=== PATIENT | male | born 1950 | race Caucasian/White ===

== ENCOUNTER 2016-05-28 14:26 | Emergency (ER) | payer MEDICARE ==
[2016-05-28 14:26] VITALS: BMI 30.7
[2016-05-28 14:35] VITALS: TEMP 98.3
--- NOTE | 2016-05-28 18:41 | DIRPT ---
CLINICAL DATA: Cough and shortness of breath. EXAM: CHEST 2 VIEW COMPARISON: 04/16/2016 FINDINGS: Cardiac pacemaker with unchanged positioning of the leads. The cardiac silhouette is enlarged. Mediastinal contours appear intact. There is no evidence of focal airspace consolidation, pleural effusion or pneumothorax. There are persistent bilateral lower lobe streaky opacities, likely representing scarring. Mild hyperinflation of the lungs is noted. Osseous structures are without acute abnormality. Soft tissues are grossly normal. IMPRESSION: Chronic bibasilar scarring without evidence of focal airspace consolidation. Stable cardiomegaly. Electronically Signed By: Vince Martinez M.D. On: 05/28/2016 18:38
[2016-05-28] MEDS ORDERED: ALBUTEROL 0.083% 3 ML NEB NEB ONE ×2 (21:06→22:41)
[2016-05-28] MEDS ORDERED: METHYLPREDNISOLONE 125 MG/2 ML VIAL IV ONE (21:06)
[2016-05-28] MEDS ORDERED: LORAZEPAM 2 MG/ML VIAL IV ONE (21:07)
--- NOTE | 2016-05-28 21:10 | EDPRACDOC ---
- General Information Chief Complaint: Flu-Like Symptoms Stated Complaint: TROUBLE BREATHING Time Seen by Provider: 05/28/16 21:02 Information Source: Patient Home Medications: Home Medications Aspirin [Johanthon Aspirin] 325 mg PO DAILY 03/19/13 Fluvastatin Sodium [Lescol] 40 mg PO DAILY 03/19/13 Furosemide [Lasix] 40 mg PO BID 03/19/13 Insulin Glargine,Hum.rec.anlog [Lantus] 60 unit SQ DAILY 03/19/13 Lisinopril [Prinivil] 20 mg PO DAILY 03/19/13 Allopurinol [Zyloprim] 300 mg PO DAILY PRN 04/30/15 Budesonide/Formoterol Fumarate [Symbicort 80-4.5 Mcg Inhaler] 2 puff INH BID PRN 04/30/15 Carvedilol [Coreg] 3.125 mg PO DAILY 08/16/15 Glipizide Xl [Glucotrol Xl] 10 mg PO QAM 08/16/15 Amiodarone HCl [Pacerone] 100 mg PO BID 11/06/15 Albuterol Sulfate [Ventolin Hfa] 1 - 2 puff INH Q4H PRN #1 each 04/16/16 Colchicine [Colcrys] 0.6 mg PO DIR PRN 04/16/16 Trazodone HCl [Desyrel] 100 mg PO QHS #60 tablet 04/16/16 Budesonide [Pulmicort] 0.5 mg NEB DAILY #30 ampul.neb 05/07/16 Albuterol Sulfate MDI [Proventil HFA] 2 puff INH Q4 PRN #1 inhaler 05/28/16 Levofloxacin [Levaquin] 750 mg PO DAILY #10 tab 05/28/16 Lorazepam [Ativan] 1 mg PO BID #60 tab 05/28/16 Prednisone [Sterapred 10 mg/6 day pack] 21 tab PO DIR #1 pack 05/28/16 Allergies/Adverse Reactions: Allergies Allergy/AdvReac Type Severity Reaction Status Date / Time amitriptyline HCl Allergy Nausea/Vomi Verified 05/28/16 16:45 [From Elavil] ting indomethacin Allergy Nausea/Vomi Verified 05/28/16 16:45 ting - History of Present Illness Onset: 2 DAYS HPI: PATIENT HAS A HX OF COPD. COUGH - NONPRODUCTIVE. NO FEVER. NO N/V/D. PATIENT HAS HAD SOB AND FATIGUE FOR 2 DAYS. Current Symptoms: Reports: Cough, Nasal Symptoms Shortness of Breath: Moderate Cough: Reports: Non-productive Rhinorrhea: Reports: Clear Ear Symptoms: Reports: None Fever Severity/Quality: Reports: no fever Oral Intake: Normal Urinary Output: Normal Relevant History of: COPD Associated Signs & Symptoms:: Reports: Cough ED Past Medical History - History Reviewed Yes Nurses notes reviewed and agree except as marked Travel Outside of [place] in the Last 3 Months?: No - Patient Medical History Neurological History: Denies: Cerebrovascular Accident, Seizures Cardiac History: Reports: Atrial Fibrillation, Hypertension, Congestive Heart Failure, Heart Attack, Cardiac Catheterization (three months ago), Pacemaker Respiratory History: Reports: COPD, Emphysema GI/ History: Reports: Kidney Stones. Denies: Liver Failure, Gastroesophageal Reflux Musculoskeletal History: Reports: Gout. Denies: Rheumatoid Arthritis Psychological History: Reports: Anxiety. Denies: Depression, Substance Use Disorder Systemic History: Reports: Diabetes. 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 Denies: Stroke - Social Medical History Smoking Status: Former smoker Social History: Denies: Substance Use Disorder ETOH: None Substance Abuse: None Lives With: Family Lives In: Home EDM Review of Systems - Review of Systems ROS Negative Except as Marked: Yes All systems reviewed and were negative except as marked Constitutional: No Symptoms Reported. negative: Fever, Chills, Weakness, Fatigue, Loss of Appetite Eyes: No Symptoms Reported. negative: Redness, Blurred Vision, Double Vision, Discharge, Pain, Light Sensitive, Photophobia Ears: No Symptoms Reported. negative: Pain, Hearing Loss, Drainage, Ear Pulling Throat: No Symptoms Reported. negative: Pain, Swelling Nose: No Symptoms Reported. negative: Congestion, Bleeding, Discharge, Injection, Swelling, Deformity, Ecchymosis, Tender, Abrasion, Laceration Mouth: No Symptoms Reported. negative: Pain, Drooling Respiratory: Cough, Shortness of Breath. negative: Barky Cough, Brassy Cough, Hemoptysis, Wheezing Cardiovascular: No Symptoms Reported. negative: Chest Pain, Palpitations, Syncope, Edema, Orthopnea, PND, Skin Mottling, Cyanosis Gastrointestinal: No Symptoms Reported. negative: Pain, Constipation, Nausea, Vomiting, Diarrhea, Melena, Formula Intolerance Genitourinary: No Symptoms Reported. negative: Dysuria, Hematuria, Frequency, Discharge, Bleeding, Testicular Pain, Neurological: No Symptoms Reported. negative: Headache, Dizziness, Seizure, Numbness, Weakness, Speech Difficulty, Gait Difficulty Musculoskeletal: No Symptoms Reported. negative: Neck, Chestwall, Ribs, Back, Shoulder, Arm, Elbow, Forearm, Wrist, Hand, Pelvis, Hip, Femur, Knee, Leg, Ankle , Foot Integumentary: No Symptoms Reported. negative: Itching, Rash, Bruising, Wound Allergic/Immunologic: No Symptoms Reported. negative: Hives, Itching Hematologic: No Symptoms Reported. negative: Lymphadenopathy, Easy Bruising, Easy Bleeding Endocrine: No Symptoms Reported. negative: Weight Gain, Weight Loss Psychiatric: No Symptoms Reported. negative: Anxiety, Depression, Hallucinations, Insomnia, Suicidal - Physical Exam Constitutional: Alert (Awake), Distress (MILD) Oriented to: Time, Person, Place Last recorded Vital Signs: Last Vital Signs Temp 98.3 F 05/28/16 14:31 Pulse 82 05/28/16 21:06 Resp 24 05/28/16 21:06 BP 156/108 H 05/28/16 21:06 Pulse Ox 91 05/28/16 21:06 Oxygen Pulse Oxygen Saturation 91 O2 Device Room Air Oxygen Flow Rate 2 Fraction of Inspired Oxygen ( FIO2) - HEENT Head: Normal ( normocephalic) Eye Exam: Normal (PERRL, EOMI, Sclera white) Oropharynx: Normal (Pharynx:Moist without exudate,Gums-no swelling) Tympanic Membrane: Normal ENT EAC: Normal TMJ: Normal Nose: No Symptoms Reported (septum midline) Neck: Normal (FROM, trachea at midline) - Respiratory/Cardiovascular Respiratory: Diminished, Wheezes Cardiovascular: Tachycardia - GI Auscultation: Normal (NABS) Palpation: Normal (Soft,No rebound or guarding, non distended) Tenderness: Non tender Novak's Sign: Negative - Bladder: Normal - Musculoskeletal Back: Normal (Non-Tender) Extremities: Normal (Normal tone, Pulses 2+ No cyanosis or edema, FROM) - Integumentary Skin: Normal, Warm, Dry Lymphatics: Normal (no adenopathy) - Neurologic Memory Impaired: Normal Motor Function: Normal (Normal tone, Pulses 2+ No cyanosis or edema, FROM) Cranial Nerve: Normal (CN II-X11 intact sensation, strength 5/5) Cerebellar: Normal Mood Description: Normal Perception: Normal Decision Time to Discharge: 22:07 - Departure Yes I personally saw and evaluated the patient. Disposition: Home Condition: Good Final Diagnosis: URI (upper respiratory infection) Qualifiers: URI type: unspecified URI Qualified Code(s): J06.9 - Acute upper respiratory infection, unspecified COPD (chronic obstructive pulmonary disease) Qualifiers: COPD type: emphysema Emphysema type: unspecified Qualified Code(s): J43.9 - Emphysema, unspecified Instructions: Upper Respiratory Infection (ED) Education/Counseling Given To: Patient Education/Counseling Given Regarding: Diagnosis, Treatment, Prognosis, Follow Up Referrals: None,No Provider [Primary Care Provider] - One Week Elvis Benedict MD [Staff Physician] - One Week Prescriptions: Albuterol Sulfate MDI [Proventil HFA] 2 puff INH Q4 PRN #1 inhaler PRN Reason: Dyspnea Levofloxacin [Levaquin] 750 mg PO DAILY #10 tab Lorazepam [Ativan] 1 mg PO BID #60 tab Prednisone [Sterapred 10 mg/6 day pack] 21 tab PO DIR #1 pack
[2016-05-28] MEDS ORDERED: LEVOFLOXACIN 750 MG TAB PO ONE (21:11)
[2016-05-28] MEDS ORDERED: ALBUTEROL 6.7 GM MDI INH ONE (21:11)
[2016-05-28 21:25] LABS: ABG Draw Site Left Radial; ALLEN'S TEST PASS; BEb -2.1 (+/- 2); TCO2 21.5 MMOL/L (23-27)
[2016-05-28 23:12] VITALS: BP 174/102; PULSE 78
== END 2016-05-28 23:20 | disposition home or self-care (01) ==
LOC: ED 14:26
DX: J06.9 Acute upper respiratory infection, unspecified (principal); J44.9 Chronic obstructive pulmonary disease, unspecified
CPT/HCPCS: 36415; 36600; 71020; 82803; 87804; 94640; 96374; 96375; 99284; A9270; J2060; J2930; J3490

== ENCOUNTER 2016-06-02 14:01 | Inpatient (IN) | payer MEDICARE ==
[2016-06-02 14:27] LABS: AUTOMATED BASOPHIL 0.3 % (0-2); AUTOMATED EOSINOPHIL 0.2 % (0-5); AUTOMATED MONOCYTE 5.9 % (3-10); AUTOMATED NEUTROPHIL 85.6 % (45-76); MPV 7.9 fL (7.4-10.4)
[2016-06-02 14:40] LABS: PARTIAL THROMB. TIME 24.3 SEC (22-35); PT-INR 1.2
[2016-06-02 14:50] LABS: BLOOD UREA NITROGEN 47 MG/DL (9-20); CALCIUM 9.8 MG/DL (8.4-10.2); CALCULATED OSMOLALITY 286 MOs/Kg (270-290); CHLORIDE 93 mEq/L (98-107); SODIUM LEVEL 133 mEq/L (137-146); TOTAL PROTEIN 8.3 G/DL (6.3-8.2)
--- NOTE | 2016-06-02 15:13 | DIRPT ---
CLINICAL DATA: Shortness of breath. History of COPD P EXAM: CHEST 2 VIEW COMPARISON: chest x-rays dated 05/28/2016 and 04/16/2016. FINDINGS: Cardiomegaly is stable. Left chest wall pacemaker/ AICD is stable in position. There is stable mild hyperinflation compatible with the given history of COPD. There is stable mild scarring/ atelectasis at each lung base. Lungs otherwise clear. No convincing evidence of congestive heart failure. No evidence of pneumonia. Mild degenerative change against again seen throughout the slightly kyphotic thoracic spine. No acute osseous abnormality. IMPRESSION: 1. No evidence of acute cardiopulmonary abnormality. No evidence of CHF or pneumonia. 2. Cardiomegaly is stable. 3. Probable mild scarring/atelectasis at each lung base, unchanged. Electronically Signed By: Caleb Pérez M.D. On: 06/02/2016 15:11
[2016-06-02 15:21] LABS: GLUCOSE 430 MG/DL (70-99)
--- NOTE | 2016-06-02 16:03 | EDPRACDOC ---
- General Information Chief Complaint: Dyspnea/Resp distress Stated Complaint: DX WITH HEART FAILURE IF NOT BETTER GO TO ED Time Seen by Provider: 06/02/16 16:00 Mode Of Arrival: Car Home Medications: Home Medications Aspirin [Johnathon Aspirin] 325 mg PO DAILY 03/19/13 Fluvastatin Sodium [Lescol] 40 mg PO DAILY 03/19/13 Furosemide [Lasix] 40 mg PO BID 03/19/13 Insulin Glargine,Hum.rec.anlog [Lantus] 60 unit SQ DAILY 03/19/13 Lisinopril [Prinivil] 20 mg PO DAILY 03/19/13 Allopurinol [Zyloprim] 300 mg PO DAILY PRN 04/30/15 Budesonide/Formoterol Fumarate [Symbicort 80-4.5 Mcg Inhaler] 2 puff INH BID PRN 04/30/15 Carvedilol [Coreg] 3.125 mg PO DAILY 08/16/15 Glipizide Xl [Glucotrol Xl] 10 mg PO QAM 08/16/15 Amiodarone HCl [Pacerone] 100 mg PO BID 11/06/15 Albuterol Sulfate [Ventolin Hfa] 1 - 2 puff INH Q4H PRN #1 each 04/16/16 Colchicine [Colcrys] 0.6 mg PO DIR PRN 04/16/16 Trazodone HCl [Desyrel] 100 mg PO QHS #60 tablet 04/16/16 Budesonide [Pulmicort] 0.5 mg NEB DAILY #30 ampul.neb 05/07/16 Albuterol Sulfate MDI [Proventil HFA] 2 puff INH Q4 PRN #1 inhaler 05/28/16 Levofloxacin [Levaquin] 750 mg PO DAILY #10 tab 05/28/16 Lorazepam [Ativan] 1 mg PO BID #60 tab 05/28/16 Prednisone [Sterapred 10 mg/6 day pack] 21 tab PO DIR #1 pack 05/28/16 Allergies/Adverse Reactions: Allergies Allergy/AdvReac Type Severity Reaction Status Date / Time amitriptyline HCl Allergy Nausea/Vomi Verified 06/02/16 14:08 [From Elavil] ting indomethacin Allergy Nausea/Vomi Verified 06/02/16 14:08 ting - History of Present Illness HPI: PT SOB FOR A COUPLE OF WEEKS. SEEN IN ED MONDAY NIGHT. TOLD COPD. SAW [employer] MONDAY ([facility]), TOLD HEART FAILURE, INCREASED LASIX 80 MG BID. TOLD IF GETTING WORSE TO GO BACK TO ER. GOT SOME FLUID OFF BUT SOB GETTING WORSE, + ORTHOPNEA. DENIES CHEST CHEST PAIN. USES CPAP. NOT O2 DEPENDENT. ED Past Medical History - History Reviewed Yes Nurses notes reviewed and agree except as marked - Patient Medical History Neurological History: Denies: Cerebrovascular Accident, Seizures Cardiac History: Reports: Atrial Fibrillation, Hypertension, Congestive Heart Failure, Heart Attack, Cardiac Catheterization (three months ago), Pacemaker Respiratory History: Reports: COPD, Emphysema GI/ History: Reports: Kidney Stones. Denies: Liver Failure, Gastroesophageal Reflux Musculoskeletal History: Reports: Gout. Denies: Rheumatoid Arthritis Psychological History: Reports: Anxiety. Denies: Depression, Substance Use Disorder Systemic History: Reports: Diabetes. 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 Denies: Stroke - Social Medical History Smoking Status: Former smoker Social History: Denies: Substance Use Disorder EDM Review of Systems - Review of Systems ROS Negative Except as Marked: Yes All systems reviewed and were negative except as marked Constitutional: No Symptoms Reported. negative: Fever Respiratory: Cough (MILD), Shortness of Breath Cardiovascular: No Symptoms Reported. negative: Chest Pain Gastrointestinal: No Symptoms Reported Genitourinary: No Symptoms Reported - Physical Exam Constitutional: Alert (Awake), No apparent distress Oriented to: Time, Person, Place Last recorded Vital Signs: Last Vital Signs Temp 97.4 F L 06/02/16 14:08 Pulse 76 06/02/16 14:08 Resp 22 06/02/16 14:08 BP 149/83 06/02/16 14:08 Pulse Ox 99 06/02/16 14:08 Oxygen Pulse Oxygen Saturation 99 O2 Device Oxygen Flow Rate Fraction of Inspired Oxygen ( FIO2) - HEENT Head: Normal ( normocephalic) Eye Exam: Normal (PERRL, EOMI, Sclera white) Oropharynx: Normal (Pharynx:Moist without exudate,Gums-no swelling) Nose: No Symptoms Reported (septum midline) Neck: Normal (FROM, trachea at midline) - Respiratory/Cardiovascular Respiratory: Rhonchi (FAINT B/L) Cardiovascular: Normal (RRR without murmur, gallop or rub) - GI Auscultation: Normal (NABS) Palpation: Normal (Soft,No rebound or guarding, non distended) Tenderness: Non tender Novak's Sign: Negative - Musculoskeletal Back: Normal (Non-Tender) Extremities: Normal (Normal tone, Pulses 2+ No cyanosis or edema, FROM) - Integumentary Skin: Normal, Warm, Dry Lymphatics: Normal (no adenopathy) - Neurologic Memory Impaired: Normal Motor Function: Normal (Normal tone, Pulses 2+ No cyanosis or edema, FROM) Cranial Nerve: Normal (CN II-X11 intact sensation, strength 5/5) Cerebellar: Normal Mood Description: Normal Perception: Normal ED SOB MDM - Differential Diagnosis Differential Diagnosis: Heart Failure, Pnuemonia - Results Result Diagrams: 06/02/16 14:13 06/02/16 14:13 Results: WBC 12.5 xk/uL (3.8-10.8) H 06/02/16 14:13 RBC 6.12 xM/uL (4.70-6.10) H 06/02/16 14:13 Hgb 19.5 g/dL (14.0-18.0) H 06/02/16 14:13 Hct 56.8 % (42-52) H 06/02/16 14:13 MCV 93 fL (80-94) 06/02/16 14:13 MCH 31.9 pg (27-32) 06/02/16 14:13 MCHC 34.3 g/dl (33-36) 06/02/16 14:13 RDW 15.5 % (11.5-14.5) H 06/02/16 14:13 Plt Count 218 xk/uL (130-400) 06/02/16 14:13 MPV 7.9 fL (7.4-10.4) 06/02/16 14:13 Neut % (Auto) 85.6 % (45-76) H 06/02/16 14:13 Lymph % (Auto) 8.0 % (17-44) L 06/02/16 14:13 Haralson % (Auto) 5.9 % (3-10) 06/02/16 14:13 Eos % (Auto) 0.2 % (0-5) 06/02/16 14:13 Baso % (Auto) 0.3 % (0-2) 06/02/16 14:13 Absolute Neuts (auto) 10.63 xk/uL (1.7-8.2) H 06/02/16 14:13 Absolute Lymphs (auto) 1.00 xk/uL (0.65-4.75) 06/02/16 14:13 PT 12.7 SEC (9.2-11.2) H 06/02/16 14:13 INR 1.2 06/02/16 14:13 APTT 24.3 SEC (22-35) 06/02/16 14:13 Sodium 133 mEq/L (137-146) L 06/02/16 14:13 Potassium 4.7 mEq/L (3.5-5.1) 06/02/16 14:13 Chloride 93 mEq/L (98-107) L 06/02/16 14:13 Carbon Dioxide 24 mMOL/L (22-33) 06/02/16 14:13 Anion Gap 21 mEq/L (8-16) H 06/02/16 14:13 BUN 47 MG/DL (9-20) H 06/02/16 14:13 Creatinine 1.60 MG/DL (0.66-1.25) H 06/02/16 14:13 Estimated GFR (MDRD) 43 mL/min (>=60) L 06/02/16 14:13 Glucose 430 MG/DL (70-99) H* 06/02/16 14:13 Calculated Osmolality 286 MOs/Kg (270-290) 06/02/16 14:13 Calcium 9.8 MG/DL (8.4-10.2) 06/02/16 14:13 Total Bilirubin 2.6 MG/DL (0.2-1.3) H 06/02/16 14:13 AST 30 IU/L (17-59) 06/02/16 14:13 ALT 25 IU/L (21-72) 06/02/16 14:13 Alkaline Phosphatase 160 IU/L (50-160) 06/02/16 14:13 Troponin I < 0.01 ng/mL (<.04) 06/02/16 14:13 [id number] Pept 8820 pg/mL (0-900) H 06/02/16 14:13 Total Protein 8.3 G/DL (6.3-8.2) H 06/02/16 14:13 Albumin 4.4 G/DL (3.5-5.0) 06/02/16 14:13 Lab Results 06/02/16 06/02/16 06/02/16 14:13 14:13 14:13 WBC 12.5 H RBC 6.12 H Hgb 19.5 H Hct 56.8 H MCV 93 MCH 31.9 MCHC 34.3 RDW 15.5 H Plt Count 218 MPV 7.9 Neut % (Auto) 85.6 H Lymph % (Auto) 8.0 L Haralson % (Auto) 5.9 Eos % (Auto) 0.2 Baso % (Auto) 0.3 Absolute Neuts (auto) 10.63 H Absolute Lymphs (auto) 1.00 PT 12.7 H INR 1.2 APTT 24.3 Sodium 133 L Potassium 4.7 Chloride 93 L Carbon Dioxide 24 Anion Gap 21 H BUN 47 H Creatinine 1.60 H Estimated GFR (MDRD) 43 L Glucose 430 H* Calculated Osmolality 286 Calcium 9.8 Total Bilirubin 2.6 H AST 30 ALT 25 Alkaline Phosphatase 160 Troponin I < 0.01 [id number] Pept 8820 H Total Protein 8.3 H Albumin 4.4 - EKG EKG #1 EKG Time: 14:08 -: Yes EKG interpreted by me Rate: bpm: 76 Rhythm: Paced Comments: ABNORMAL EKG - Departure Yes I personally saw and evaluated the patient. Disposition: Admit IP To This Hospital Condition: Stable Final Diagnosis: CHF (congestive heart failure) Qualifiers: Congestive heart failure type: systolic Congestive heart failure chronicity: acute Qualified Code(s): I50.21 - Acute systolic (congestive) heart failure Referrals: None,No Provider [Primary Care Provider] - One Week Prescriptions: No Action Insulin Glargine,Hum.rec.anlog [Lantus] 60 unit SQ DAILY Lisinopril [Prinivil] 20 mg PO DAILY Furosemide [Lasix] 40 mg PO BID Fluvastatin Sodium [Lescol] 40 mg PO DAILY Aspirin [Johnathon Aspirin] 325 mg PO DAILY Allopurinol [Zyloprim] 300 mg PO DAILY PRN PRN Reason: GOUT FLARE Budesonide/Formoterol Fumarate [Symbicort 80-4.5 Mcg Inhaler] 2 puff INH BID PRN PRN Reason: Shortness Of Breath Glipizide Xl [Glucotrol Xl] 10 mg PO QAM Carvedilol [Coreg] 3.125 mg PO DAILY Amiodarone HCl [Pacerone] 100 mg PO BID Colchicine [Colcrys] 0.6 mg PO DIR PRN PRN Reason: GOUT FLARE UPS Albuterol Sulfate [Ventolin Hfa] 1 - 2 puff INH Q4H PRN #1 each PRN Reason: SHORTNESS OF BREATH Trazodone HCl [Desyrel] 100 mg PO QHS #60 tablet Budesonide [Pulmicort] 0.5 mg NEB DAILY #30 ampul.neb Albuterol Sulfate MDI [Proventil HFA] 2 puff INH Q4 PRN #1 inhaler PRN Reason: Dyspnea Levofloxacin [Levaquin] 750 mg PO DAILY #10 tab Prednisone [Sterapred 10 mg/6 day pack] 21 tab PO DIR #1 pack Lorazepam [Ativan] 1 mg PO BID #60 tab Decision to Admit Time: 16:46 Decision to admit date: 06/02/16 Decision to admit: from ED - Physician Consulted Hospitalist Time Called: 16:46 Provider Called: Christa Christian Time [employer] Eng[employer] Supervisor Returned Call: 16:46
[2016-06-02 16:22] LABS: ABG Draw Site Right Radial; ALLEN'S TEST PASS; BEb 1.7 (+/- 2); TCO2 25.4 MMOL/L (23-27)
[2016-06-02] MEDS ORDERED: NITROGLYCERINE 0.4 MG TAB SL PRN (17:21)
[2016-06-02] MEDS ORDERED: MORPHINE 2 MG/ML INJECTION IV PRN (17:21)
[2016-06-02] MEDS ORDERED: ALBUTEROL 6.7 GM MDI INH PRN ×2 (17:26)
[2016-06-02] MEDS ORDERED: Non-Formulary Medication ITEM (Budesonide/Formoterol Fumarate [Symbicort 80-4.5 Mcg Inha INH PRN (17:26)
[2016-06-02] MEDS ORDERED: BUDESONIDE 0.5 MG NEB NEB PRN (17:34)
[2016-06-02] MEDS ORDERED: ALBUTEROL 0.083% 3 ML NEB NEB PRN (17:35)
--- NOTE | 2016-06-02 17:39 | HISTPHYS ---
- Chief Complaint Pt was seen here recently and was being treated for COPD. Pt was seen at cardiology on Monday and told it was CHF and if he was no better in a few days to come to ER. Pt states he has increased lasix over last several days. - History of Present Illness PT SOB FOR A COUPLE OF WEEKS. SEEN IN ED MONDAY NIGHT. TOLD COPD. SAW ELECTRICIAN SUBSTATION MONDAY (ARIADNA), TOLD HEART FAILURE, INCREASED LASIX 80 MG BID. TOLD IF GETTING WORSE TO GO BACK TO ER. GOT SOME FLUID OFF BUT SOB GETTING WORSE, + ORTHOPNEA. DENIES CHEST CHEST PAIN. USES CPAP. NOT O2 DEPENDENT. - Medical History Cardiac History: Reports: Atrial Fibrillation, Hypertension, Congestive Heart Failure, Heart Attack, Cardiac Catheterization (three months ago), Pacemaker Respiratory History: Reports: COPD, Emphysema GI/ History: Reports: Kidney Stones. Denies: Liver Failure, Gastroesophageal Reflux Musculoskeletal History: Reports: Gout. Denies: Rheumatoid Arthritis Systemic History: Reports: Diabetes. Denies: Cancer, Anemia Neurological History: Denies: Cerebrovascular Accident, Seizures Psychological History: Reports: Anxiety. Denies: Depression, Substance Use Disorder - Surgical History Reports: Cardiac Catheterization (three months ago), Other (PACEMAKER, ABLATION) - Medictions/Allergies Allergies amitriptyline HCl [From Elavil] Allergy (Verified 06/02/16 14:08) Nausea/Vomiting indomethacin Allergy (Verified 06/02/16 14:08) Nausea/Vomiting Home Medications Aspirin [Johnathon Aspirin] 325 mg PO DAILY 03/19/13 Fluvastatin Sodium [Lescol] 40 mg PO DAILY 03/19/13 Furosemide [Lasix] 40 mg PO BID 03/19/13 Insulin Glargine,Hum.rec.anlog [Lantus] 60 unit SQ DAILY 03/19/13 Lisinopril [Prinivil] 20 mg PO DAILY 03/19/13 Allopurinol [Zyloprim] 300 mg PO DAILY PRN 04/30/15 Budesonide/Formoterol Fumarate [Symbicort 80-4.5 Mcg Inhaler] 2 puff INH BID PRN 04/30/15 Carvedilol [Coreg] 3.125 mg PO DAILY 08/16/15 Glipizide Xl [Glucotrol Xl] 10 mg PO QAM 08/16/15 Amiodarone HCl [Pacerone] 100 mg PO BID 11/06/15 Albuterol Sulfate [Ventolin Hfa] 1 - 2 puff INH Q4H PRN #1 each 04/16/16 Colchicine [Colcrys] 0.6 mg PO DIR PRN 04/16/16 Trazodone HCl [Desyrel] 100 mg PO QHS #60 tablet 04/16/16 Budesonide [Pulmicort] 0.5 mg NEB DAILY #30 ampul.neb 05/07/16 Albuterol Sulfate MDI [Proventil HFA] 2 puff INH Q4 PRN #1 inhaler 05/28/16 Levofloxacin [Levaquin] 750 mg PO DAILY #10 tab 05/28/16 Lorazepam [Ativan] 1 mg PO BID #60 tab 05/28/16 Prednisone [Sterapred 10 mg/6 day pack] 21 tab PO DIR #1 pack 05/28/16 - Family History Reports: Hypertension (dad), Diabetes (sister), Cancer (cannot remember), Cardiac Disorders. Denies: Stroke - Social History Smoking Status: Former smoker Social History: Denies: Substance Use Disorder - Review of Systems Constitutional: No Symptoms Reported (No Fever, chills, wt loss/gain, diaphoresis,fatigue/malaise.), Weight loss Eyes: No Symptoms Reported (No blurry vision, visual changes, eye pain, or eye redness.) Ears: No Symptoms Reported (No ear pain or discharge) Nose: No Symptoms Reported (No nasal discharge/congestion or bleeding) Mouth: No Symptoms Reported (No oropharyngeal lesions or erythema) Throat/Neck: No Symptoms Reported (No throat pain or swelling.No oropharyngeal lesions or erythema.) Respiratory: Cough, Shortness of Breath, Wheezing, Dyspnea Cardiovascular: Chest Pain, Edema, Orthopnea, Palpitations Gastrointestinal: No Symptoms Reported (No abdominal pain, nausea, vomiting, diarrhea, constipation, or bloody stool.) Genitourinary: No Symptoms Reported (No dysuria or hematuria.) Neurological: No Symptoms Reported (No headache, dizziness, seizures, or focal weakness.) Musculoskeletal:: No Symptoms Reported Integumentary: No Symptoms Reported (no rashes or lesions) Allergic/Immunologic: No Symptoms Reported (no rashes or lesions) Hematologic: No Symptoms Reported (No chronic anemia, bleeding, or easy bruising.), Other (Lymphatics- no lymph node swelling or pain.) Endocrine: No Symptoms Reported (No thyroid issues, polyuria, or polydipsia.) Psychiatric: No Symptoms Reported (Fully oriented, with normal and appropriate affect.) - Physical Exam Vital Signs: Initial Vitals Temperature 97.4 F L 06/02/16 14:08 Pulse Rate 76 06/02/16 14:08 Respiratory Rate 22 06/02/16 14:08 Blood Pressure 149/83 06/02/16 14:08 Pulse Oxygen Saturation 99 06/02/16 14:08 Constitutional: Alert (Awake, Fully oriented. Normal and appropriate affect.Well appearing. Well nourished.), Distress (Very short of breath) Oriented to: Time, Person, Place - HEENT Head: Normal (normocephalic, atraumatic.), Other (No cervical lymphadenopathy. No supraclavicular lymphadenopathy. Neck: No palpable mass, supple , trachea midline.) Eye: Normal (pupils equal, reactive to light, and round; EOMI, Sclera white) Oropharynx: Normal (Pharynx: Moist without exudate,Gums-no swelling, No oropharyngeal lesions or erythema, Mucous membranes are dry.) Tympanic Membrane: Normal (no discharge) ENT EAC: Normal (No oropharyngeal lesions or erythema. Mucous membranes are dry. ) TMJ: Normal Nose: No Symptoms Reported (septum midline, Nares patent, without discharge or bleeding.) Respiratory: Tachypnea, Wheezes Cardiovascular: Normal (RRR , Normal S1, S2. No murmurs, rubs, or gallops. PMI non-displaced. Carotids: no carotid bruits. No bradycardia or tachycardia. DP pulses 2+ bilaterally.) - GI Auscultation: Normal (normal active sounds) Palpation: Normal (Soft,non distended,nontender. No hepatosplenomegaly.) Tenderness: Non tender (No rebound or guarding) Novak's Sign: Negative - Musculoskeletal Back: Normal (Non-Tender) Extremities: Edema (2+) - Integumentary Skin: Normal (Clean, dry, and intact. No rashes. No lesions.) Lymphatics: Normal (No cervical lymphadenopathy. No supraclavicular lymphadenopathy.) - Neurologic Memory Impaired: Normal Motor Function: Normal (Motor 5/5 throughout.Normal tone, Pulses 2+ No cyanosis or edema, FROM) Cranial Nerve: Normal (CN II-XII intact sensation, strength 5/5) Cerebellar: Normal (Babinski: toes downgoing bilaterally. Intact Finger to nose. Sensory grossly intact to light touch. Intact rapid alternating movements bilaterally. No pronator drift.) Mood Description: Normal (Fully oriented. Normal and appropriate affect.) Perception: Normal (Normal and appropriate affect.) - Focused CV Perfusion Exam Vital Signs: Last Vital Signs Temp 97.4 F L 06/02/16 14:08 Pulse 76 06/02/16 17:33 Resp 22 06/02/16 17:33 BP 162/91 06/02/16 17:33 Pulse Ox 97 06/02/16 17:33 - Lab Results Laboratory Results - last 24 hr 06/02/16 06/02/16 06/02/16 14:13 14:13 14:13 WBC 12.5 H RBC 6.12 H Hgb 19.5 H Hct 56.8 H MCV 93 MCH 31.9 MCHC 34.3 RDW 15.5 H Plt Count 218 MPV 7.9 Neut % (Auto) 85.6 H Lymph % (Auto) 8.0 L [place] % (Auto) 5.9 Eos % (Auto) 0.2 Baso % (Auto) 0.3 Absolute Neuts (auto) 10.63 H Absolute Lymphs (auto) 1.00 PT 12.7 H INR 1.2 APTT 24.3 Puncture Site pH pCO2 pO2 HCO3 Total CO2 Base Excess FiO2 % Specimen Drawn By Sodium 133 L Potassium 4.7 Chloride 93 L Carbon Dioxide 24 Anion Gap 21 H BUN 47 H Creatinine 1.60 H Estimated GFR (MDRD) 43 L Glucose 430 H* Calculated Osmolality 286 Calcium 9.8 Total Bilirubin 2.6 H AST 30 ALT 25 Alkaline Phosphatase 160 Troponin I < 0.01 Rtw-C-Zimuilkhbjm Pept 8820 H Total Protein 8.3 H Albumin 4.4 06/02/16 16:18 WBC RBC Hgb Hct MCV MCH MCHC RDW Plt Count MPV Neut % (Auto) Lymph % (Auto) [place] % (Auto) Eos % (Auto) Baso % (Auto) Absolute Neuts (auto) Absolute Lymphs (auto) PT INR APTT Puncture Site Right radial pH 7.490 H pCO2 32.0 L pO2 104.0 H HCO3 24.4 Total CO2 25.4 Base Excess 1.7 FiO2 % 21% Specimen Drawn By Kas[place] Sodium Potassium Chloride Carbon Dioxide Anion Gap BUN Creatinine Estimated GFR (MDRD) Glucose Calculated Osmolality Calcium Total Bilirubin AST ALT Alkaline Phosphatase Troponin I Pdx-R-Bzoblxuzszx Pept Total Protein Albumin - Diagnostic Findings EXAM: CHEST 2 VIEW COMPARISON: chest x-rays dated 05/28/2016 and 04/16/2016. FINDINGS: Cardiomegaly is stable. Left chest wall pacemaker/ AICD is stable in position. There is stable mild hyperinflation compatible with the given history of COPD. There is stable mild scarring/ atelectasis at each lung base. Lungs otherwise clear. No convincing evidence of congestive heart failure. No evidence of pneumonia. Mild degenerative change against again seen throughout the slightly kyphotic thoracic spine. No acute osseous abnormality. IMPRESSION: 1. No evidence of acute cardiopulmonary abnormality. No evidence of CHF or pneumonia. 2. Cardiomegaly is stable. 3. Probable mild scarring/atelectasis at each lung base, unchanged. Electronically Signed By: Caleb Pérez M.D. On: 06/02/2016 15:11 - Assessment (1) Cardiac asthma I50.1 - LEFT VENTRICULAR FAILURE Acute Present on Admission: Yes Patient with wheezing likely not related to CHRONIC OBSTRUCTIVE PULMONARY DISEASE as he has been treated for CHRONIC OBSTRUCTIVE PULMONARY DISEASE in the past few days and has not had any response. Will try treatment with Lasix on the evidence based congestive heart failure protocol. (2) CHF (congestive heart failure) I50.9 - HEART FAILURE, UNSPECIFIED Chronic Present on Admission: Yes Qualifiers: Congestive heart failure type: systolic Congestive heart failure chronicity : acute Qualified Code(s): I50.21 - Acute systolic (congestive) heart failure No recent echocardiogram noted will check 1 in the a.m. continue evidence based protocol for congestive heart failure (3) CKD (chronic kidney disease) N18.9 - CHRONIC KIDNEY DISEASE, UNSPECIFIED Acute Present on Admission: Yes Qualifiers: Chronic kidney disease stage: stage 3 (moderate) Qualified Code(s): N18.3 - Chronic kidney disease, stage 3 (moderate) Likely related to his uncontrolled diabetes. Check urine microalbumin. Avoid nephrotoxins agents, will hold his Lasix and HARISH-inhibitor as he received contrast media for this CT scan. Monitor closely. (4) COPD (chronic obstructive pulmonary disease) J44.9 - CHRONIC OBSTRUCTIVE PULMONARY DISEASE, UNSPECIFIED Chronic Qualifiers: COPD type: emphysema Chronic bronchitis type: C Emphysema type: unspecified Qualified Code(s): J43.9 - Emphysema, unspecified Will treat with nebs and oxygen. Consider steroids if necessary. 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 Chronic Present on Admission: Yes (6) DMII (diabetes mellitus, type 2) E11.9 - TYPE 2 DIABETES MELLITUS WITHOUT COMPLICATIONS Chronic Present on Admission: Yes Qualifiers: Diabetes mellitus complication status: with skin complications Diabetes mellitus complication detail: with foot ulcer Diabetic retinopathy severity: D Proliferative retinopathy type: P Diabetes mellitus macular edema: D Diabetes mellitus chcf insulin use: with intermediate designer use Laterality: L Chronic kidney disease stage: C Qualified Code(s): E11.621 - Type 2 diabetes mellitus with foot ulcer; L97.509 - Non-pressure chronic ulcer of other part of unspecified foot with unspecified severity; 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 Need to get sugars under control. (7) Dyspnea R06.00 - DYSPNEA, UNSPECIFIED Acute Present on Admission: Yes Qualifiers: Dyspnea type: shortness of breath Qualified Code(s): R06.02 - Shortness of breath Likely related to exacerbation of heart failure plus-minus congestive heart failure peer - Plan Admitted into the hospital diurese monitor closely. Case Care Discussed with: Patient, Family Total Time: 65 minutes Critical Care: No Couseling Time (>50% in counseling/coordination): No
[2016-06-02] MEDS ORDERED: Pharmacy Order Set Alert SCH (18:00)
[2016-06-02] MEDS ORDERED: GLARGINE INSULIN (LANTUS) 100 UNITS/ML PEN SQ SCH (18:00)
[2016-06-02] MEDS ORDERED: [UNRECOGNIZED DRUG - OTHER] XX SCH (18:00)
[2016-06-02] MEDS ORDERED: FUROSEMIDE IV ONE ×2 (18:01)
[2016-06-02] MEDS ORDERED: GLUCAGON 1 MG VIAL SQ PRN (18:20)
[2016-06-02] MEDS ORDERED: DEXTROSE 25 GM/50 ML PFS IV PRN (18:20)
[2016-06-02] MEDS ORDERED: GLUCOSE (ORAL GEL) 15 GM TUBE PO PRN (18:20)
[2016-06-02] MEDS: Furosemide 100 MG/10 ML VIAL IV SCH (19:20)
[2016-06-02] MEDS: ATORVASTATIN 40 MG TAB PO SCH (19:21)
[2016-06-02] MEDS: POTASSIUM CHLORIDE 20 MEQ TAB PO SCH (19:21)
[2016-06-02] MEDS: NITROGLYCERINE 2 % OINTMENT PACK TOP SCH ×2 (19:21→23:37)
[2016-06-02] MEDS: ENOXAPARIN 40 MG/0.4 ML PFS SQ SCH (19:26)
--- NOTE | 2016-06-02 20:25 | PCM.CARDCO ---
Consultation Date: 06/02/16 Requesting Physician: Inez Perez [employer]: Elvis Everett Consult Reason: CHF - History of Present Illness Dr. Perez contact me approximately 5:30 p.m. and has been to see the patient in consultation for Cardiology continuity. He is known to my practice with a history of severe dilated cardiomyopathy with markedly reduced ejection fraction is biventricular pacemaker defibrillator chronic atrial fibrillation chronic obstructive lung disease and cirrhosis. He is not anticoagulated because of major hemorrhagic complications in the past. He was in my office Monday for routine visit after ED visit chest prior pre is felt to have had a flu-like illness. Seen in my office to short of breath at rest impaired at both cardiac heart failure and respiratory COPD deterioration his BNP level is markedly elevated increases diuretics and unfortunately failed improvement presents the hospital with decompensated heart failure. He does sodium restrict weighs daily and is weights are actually down. He is compliant with his diet and his medications. When seen Monday he was short of breath at rest any activities and was having orthopnea but not PND. He had no response to diuresis and in fact is worsened. Although his breathing was unimproved and in fact worsened today he has lost 4 lb in his peripheral edema is diminished. Recently despite decompensated heart failure marked edema his weight is down. Chief Complaint: Pt was seen here recently and was being treated for COPD. Pt states was seen at cardiology on Monday and told it was CHF and if he was no better in a few days to come to ER. Pt states he has increased lasix over last several days. - Past Medical and Surgical History Cardiac History: Reports: Atrial Fibrillation, Hypertension, Congestive Heart Failure (He also has obstructive sleep apnea on CPAP), Heart Attack, Cardiac Catheterization (three months ago), Pacemaker, Other Respiratory History: Reports: COPD, Emphysema, Other GI/ History: Reports: Kidney Stones. Denies: Liver Failure, Gastroesophageal Reflux Systemic History: Reports: Diabetes. Denies: Cancer, Anemia Musculoskeletal History: Reports: Gout. Denies: Rheumatoid Arthritis Psychological History: Reports: Anxiety. Denies: Depression, Substance Use Disorder Neurological History: Denies: Cerebrovascular Accident, Seizures Past Surgical History: Reports: Cardiac Catheterization (three months ago), Other (PACEMAKER, ABLATION) Allergies amitriptyline HCl [From Elavil] Allergy (Verified 06/02/16 14:08) Nausea/Vomiting indomethacin Allergy (Verified 06/02/16 14:08) Nausea/Vomiting Home Medications Aspirin [Johnathon Aspirin] 325 mg PO DAILY 03/19/13 Fluvastatin Sodium [Lescol] 40 mg PO DAILY 03/19/13 Furosemide [Lasix] 40 mg PO BID 03/19/13 Insulin Glargine,Hum.rec.anlog [Lantus] 60 unit SQ DAILY 03/19/13 Lisinopril [Prinivil] 20 mg PO DAILY 03/19/13 Allopurinol [Zyloprim] 300 mg PO DAILY PRN 04/30/15 Budesonide/Formoterol Fumarate [Symbicort 80-4.5 Mcg Inhaler] 2 puff INH BID PRN 04/30/15 Carvedilol [Coreg] 3.125 mg PO DAILY 08/16/15 Glipizide Xl [Glucotrol Xl] 10 mg PO QAM 08/16/15 Amiodarone HCl [Pacerone] 100 mg PO BID 11/06/15 Albuterol Sulfate [Ventolin Hfa] 1 - 2 puff INH Q4H PRN #1 each 04/16/16 Colchicine [Colcrys] 0.6 mg PO DIR PRN 04/16/16 Trazodone HCl [Desyrel] 100 mg PO QHS #60 tablet 04/16/16 Budesonide [Pulmicort] 0.5 mg NEB DAILY #30 ampul.neb 05/07/16 Albuterol Sulfate MDI [Proventil HFA] 2 puff INH Q4 PRN #1 inhaler 05/28/16 Levofloxacin [Levaquin] 750 mg PO DAILY #10 tab 05/28/16 Lorazepam [Ativan] 1 mg PO BID #60 tab 05/28/16 Prednisone [Sterapred 10 mg/6 day pack] 21 tab PO DIR #1 pack 05/28/16 - Social History Travel Outside of [place] in the Last 3 Months?: No Lives: Other (Independently) Smoking Status: Former smoker Social History: Denies: Substance Use Disorder - Family History Reports: Hypertension (dad), Diabetes (sister), Cancer (cannot remember), Cardiac Disorders. Denies: Stroke - Review of Systems Yes All systems reviewed and were negative except as marked Constitutional: No Symptoms Reported, Weakness. negative: Fever - Respiratory Cough, Wheezing, Sputum - Cardiovascular Edema, Orthopnea, PND - Musculoskeletal Musculoskeletal:: Joint Pain - Physical Exam Constitutional: No apparent distress, Alert (Awake), Other (He appears short of breath anxious chronically ill a COPD habitus) Oriented to: Time, Person, Place Exam: Last Vital Signs Temp 97.6 F 06/02/16 19:42 Pulse 80 06/02/16 19:42 Resp 22 06/02/16 19:42 BP 110/60 06/02/16 19:42 Pulse Ox 95 06/02/16 19:42 Intake & Output 06/02/16 06/02/16 06/02/16 07:59 15:59 23:59 Intake Total 240 Output Total 50 Balance 190 Patient's weight 213 lb - HEENT Head: Normal (Mild neck vein distention no bruit thyromegaly) Eye: Normal (PERRL, EOMI, Sclera white) Oropharynx: Normal (Pharynx:Moist without exudate,Gums-no swelling) Nose: No Symptoms Reported (septum midline) - Respiratory/Cardiovascular Respiratory: Diminished, Rales (Few scattered rales at the bases prolonged expiratory phase), Rhonchi (FAINT B/L) Cardiovascular: Irregular, Other (Distant soft S3) - GI Auscultation: Normal (Soft nondistended nontender) Palpation: Normal (Soft,No rebound or guarding, non distended) Tenderness: Non tender - Musculoskeletal Back: Normal (Non-Tender) Extremities: Normal (Normal tone, Pulses 2+ No cyanosis or edema, FROM), Edema ( One to 2+ pretibial presacral edema), Radial Pulse. negative: Calf Tenderness, Clubbing, Cyanosis, Femoral Pulse (Diminished), Pedal Pulse (Diminished) - Integumentary Skin: Normal, Warm, Dry Lymphatics: Normal (no adenopathy) - Neurologic Memory Impaired: Normal Cerebellar: Normal Mood Description: Normal Perception: Normal - Lab Results Laboratory Tests 06/02/16 06/02/16 06/02/16 14:13 14:13 14:13 WBC 12.5 H Hgb 19.5 H Hct 56.8 H Plt Count 218 pH pCO2 pO2 Potassium 4.7 Glucose 430 H* Troponin I < 0.01 Lkv-R-Iatwlbhbzci Pept 8820 H TSH 3.09 06/02/16 06/02/16 16:18 17:15 WBC Hgb Hct Plt Count pH 7.490 H pCO2 32.0 L pO2 104.0 H Potassium Glucose Troponin I < 0.01 Xnh-P-Penxrwakkmy Pept TSH Chest x-ray today,IMPRESSION: 1. No evidence of acute cardiopulmonary abnormality. No evidence of CHF or pneumonia. 2. Cardiomegaly is stable. 3. Probable mild scarring/atelectasis at each lung base, unchanged. EKG AFib by V paced - Assessment/Plan (1) Systolic heart failure I50.20 - UNSPECIFIED SYSTOLIC (CONGESTIVE) HEART FAILURE Chronic Present on Admission: Yes acute on chronic I50.23 - Acute on chronic systolic (congestive) heart failure Comment: Decompensated I would continue IV diuretics until symptomatically approved improved and free of his 1 to 2+ peripheral edema. Will continue his beta- almas Praneeth inhibitor and avoid PRANEETH-inhibitor the cause marked deterioration in renal function the past. Unfortunately with atrial fibrillation is not a candidate for ivabradine. He would benefit from home heart failure program (2) Atrial fibrillation I48.91 - UNSPECIFIED ATRIAL FIBRILLATION Chronic chronic I48.2 - Chronic atrial fibrillation Comment: Rate is controlled continue beta-almas and I would not commit to long-term anticoagulants with his pros previous major hemorrhagic complication and cirrhosis (3) Biventricular cardiac pacemaker in situ Z95.0 - PRESENCE OF CARDIAC PACEMAKER Chronic Present on Admission: Yes Comment: [facility], he would benefit from device interrogation especially to look at percentage of Bi V paced, the goals approximately 99% or greater often difficult to achieve this with atrial fibrillation at times these people benefit from AV donnell ablation for resynchronization electively as an outpatient. (4) COPD (chronic obstructive pulmonary disease) J44.9 - CHRONIC OBSTRUCTIVE PULMONARY DISEASE, UNSPECIFIED Chronic emphysema C unspecified J43.9 - Emphysema, unspecified Comment: Decompensated being treated intensively by the hospitalist group (5) DMII (diabetes mellitus, type 2) E11.9 - TYPE 2 DIABETES MELLITUS WITHOUT COMPLICATIONS Chronic with skin complications with foot ulcer D P D D L C Comment: Uncontrolled managed by the hospitalist (6) CKD (chronic kidney disease) N18.9 - CHRONIC KIDNEY DISEASE, UNSPECIFIED Acute stage 2 (mild) N18.2 - Chronic kidney disease, stage 2 (mild) Comment: Stable he will need close monitoring renal function electrolytes with diuresis Case Care Discussed with: Patient (And Dr. Perez)
[2016-06-02] MEDS: TRAZODONE 100 MG TAB PO SCH (20:39)
[2016-06-02] MEDS: AMIODARONE 200 MG TAB PO SCH (20:39)
[2016-06-02] MEDS: LORAZEPAM 1 MG TAB PO SCH (20:39)
[2016-06-02] MEDS: REGULAR INSULIN 100 UNITS/ML - 3 ML VIAL IV SCH ×3 (20:55→22:19)
[2016-06-02] MEDS ORDERED: Vaccine Screening Complete SCH (21:00)
[2016-06-02] MEDS: REGULAR INSULIN 100 UNITS/ML - 3 ML VIAL SQ SCH (21:00)
[2016-06-02] MEDS ORDERED: AMIODARONE HCL 100 MG PO SCH (21:00)
[2016-06-03] MEDS: NITROGLYCERINE 2 % OINTMENT PACK TOP SCH ×4 (05:24→23:50)
[2016-06-03] MEDS: Furosemide 100 MG/10 ML VIAL IV SCH ×2 (05:24→17:23)
[2016-06-03] MEDS: REGULAR INSULIN 100 UNITS/ML - 3 ML VIAL SQ SCH ×4 (07:19→20:17)
[2016-06-03] MEDS: GLIPIZIDE 10 MG PO SCH (07:20)
[2016-06-03] MEDS: ATORVASTATIN 40 MG TAB PO SCH (08:18)
[2016-06-03] MEDS: LORAZEPAM 1 MG TAB PO SCH ×2 (08:18→20:08)
[2016-06-03] MEDS: POTASSIUM CHLORIDE 20 MEQ TAB PO SCH ×2 (08:18→17:22)
--- NOTE | 2016-06-03 08:35 | PCM.CARD ---
- Subjective Reason for visit: Follow up congestive heart failure Feeling better, breathing is significantly improved. Vital Signs: Last Vital Signs Temp 97.6 F 06/03/16 07:12 Pulse 64 06/03/16 07:12 Resp 20 06/03/16 07:12 BP 98/60 L 06/03/16 07:12 Pulse Ox 94 06/03/16 07:12 PE: General Appearance: Well developed. Well nourished. In no acute distress. Lungs: Chest was not overinflated. Clear to auscultation. Poor air entry Cardiovascular: Jugular Venous Distention: JVD not increased. Heart Rate And Rhythm: Normal. Heart Sounds: Irregularly irregular, tones are very distant. Murmurs: No murmurs were heard. Carotid Arteries: Carotid pulses were normal. No bruit in the carotid artery. Edema: Not present. Lower extremities pulses normal (including femoral popliteal and dorsalis pedis) . There is no edema Musculoskeletal System: General/bilateral: No cyanosis of the fingers. Neurological: Oriented to time, place, and person. Nails: No clubbing of the fingernails. Lab/DI Results Reviewed: Laboratory Tests 06/02/16 06/02/16 06/02/16 14:13 14:13 14:13 WBC 12.5 H RBC 6.12 H Hgb 19.5 H Hct 56.8 H MCV 93 MCH 31.9 MCHC 34.3 RDW 15.5 H Plt Count 218 MPV 7.9 Neut % (Auto) 85.6 H Lymph % (Auto) 8.0 L [place] % (Auto) 5.9 Eos % (Auto) 0.2 Baso % (Auto) 0.3 Absolute Neuts (auto) 10.63 H Absolute Lymphs (auto) 1.00 PT 12.7 H INR 1.2 APTT 24.3 Puncture Site pH pCO2 pO2 HCO3 Total CO2 Base Excess FiO2 % Specimen Drawn By Sodium 133 L Potassium 4.7 Chloride 93 L Carbon Dioxide 24 Anion Gap 21 H BUN 47 H Creatinine 1.60 H Estimated GFR (MDRD) 43 L Glucose 430 H* POC Capillary Glucose Hemoglobin A1c Calculated Osmolality 286 Calcium 9.8 Magnesium Total Bilirubin 2.6 H AST 30 ALT 25 Alkaline Phosphatase 160 Troponin I < 0.01 [id number]-P-Zfdowbmtzhv Pept 8820 H Total Protein 8.3 H Albumin 4.4 Triglycerides Cholesterol LDL Cholesterol, Calc VLDL Cholesterol, Calc HDL Cholesterol Cholesterol/HDL Ratio TSH 06/02/16 06/02/16 06/02/16 14:13 14:13 16:18 WBC RBC Hgb Hct MCV MCH MCHC RDW Plt Count MPV Neut % (Auto) Lymph % (Auto) [place] % (Auto) Eos % (Auto) Baso % (Auto) Absolute Neuts (auto) Absolute Lymphs (auto) PT INR APTT Puncture Site Right radial pH 7.490 H pCO2 32.0 L pO2 104.0 H HCO3 24.4 Total CO2 25.4 Base Excess 1.7 FiO2 % 21% Specimen Drawn By [place] Sodium Potassium Chloride Carbon Dioxide Anion Gap BUN Creatinine Estimated GFR (MDRD) Glucose POC Capillary Glucose Hemoglobin A1c 8.2 H Calculated Osmolality Calcium Magnesium Total Bilirubin AST ALT Alkaline Phosphatase Troponin I Sly-Y-Ztjkzbcbwsq Pept Total Protein Albumin Triglycerides Cholesterol LDL Cholesterol, Calc VLDL Cholesterol, Calc HDL Cholesterol Cholesterol/HDL Ratio TSH 3.09 06/02/16 06/02/16 06/02/16 17:15 18:28 20:49 WBC RBC Hgb Hct MCV MCH MCHC RDW Plt Count MPV Neut % (Auto) Lymph % (Auto) [place] % (Auto) Eos % (Auto) Baso % (Auto) Absolute Neuts (auto) Absolute Lymphs (auto) PT INR APTT Puncture Site pH pCO2 pO2 HCO3 Total CO2 Base Excess FiO2 % Specimen Drawn By Sodium Potassium Chloride Carbon Dioxide Anion Gap BUN Creatinine Estimated GFR (MDRD) Glucose POC Capillary Glucose 259 H 329 H Hemoglobin A1c Calculated Osmolality Calcium Magnesium Total Bilirubin AST ALT Alkaline Phosphatase Troponin I < 0.01 [id number]-Gqkpbmmmdab Pept Total Protein Albumin Triglycerides Cholesterol LDL Cholesterol, Calc VLDL Cholesterol, Calc HDL Cholesterol Cholesterol/HDL Ratio TSH 06/02/16 06/03/16 06/03/16 21:55 05:29 07:23 WBC RBC Hgb Hct MCV MCH MCHC RDW Plt Count MPV Neut % (Auto) Lymph % (Auto) [place] % (Auto) Eos % (Auto) Baso % (Auto) Absolute Neuts (auto) Absolute Lymphs (auto) PT INR APTT Puncture Site pH pCO2 pO2 HCO3 Total CO2 Base Excess FiO2 % Specimen Drawn By Sodium Potassium Chloride Carbon Dioxide Anion Gap BUN Creatinine Estimated GFR (MDRD) Glucose POC Capillary Glucose 187 H 169 H Hemoglobin A1c Calculated Osmolality Calcium Magnesium 2.10 Total Bilirubin AST ALT Alkaline Phosphatase Troponin I Lcw-O-Vvowljtatys Pept Total Protein Albumin Triglycerides 200 H Cholesterol 159 LDL Cholesterol, Calc 79.0 VLDL Cholesterol, Calc 40.0 HDL Cholesterol 40.0 Cholesterol/HDL Ratio 4.0 TSH - Assessment/Plan (1) CHF (congestive heart failure) Chronic I50.9 - HEART FAILURE, UNSPECIFIED systolic acute I50.21 - Acute systolic (congestive) heart failure Comment/Plan: Improved clinically. Good diuresis. Will continue diuresis. He is already on HARISH-inhibitor beta-almas diuretic. Will continue. Will watch Chem 7. (2) Atrial fibrillation Chronic I48.91 - UNSPECIFIED ATRIAL FIBRILLATION chronic I48.2 - Chronic atrial fibrillation Comment/Plan: Rate is controlled. He is not anticoagulated secondary to serious complication bleeding complication that he had when he was anticoagulated before. (3) Biventricular cardiac pacemaker in situ Chronic Z95.0 - PRESENCE OF CARDIAC PACEMAKER Present on Admission: Yes Comment/Plan: Present. Will see if it was interrogated recently. (4) COPD (chronic obstructive pulmonary disease) Chronic J44.9 - CHRONIC OBSTRUCTIVE PULMONARY DISEASE, UNSPECIFIED emphysema C unspecified J43.9 - Emphysema, unspecified Comment/Plan: This problem has being addressed by Internal Medicine team. (5) DMII (diabetes mellitus, type 2) Chronic E11.9 - TYPE 2 DIABETES MELLITUS WITHOUT COMPLICATIONS with skin complications with foot ulcer D P D D L C Comment/Plan: Glucose still elevated. Again this problem has being addressed by Internal Medicine team. - Plan Overall gentleman with respiratory distress. The combination of 2 issues congestive heart for which is quite advanced as well as COPD. Valve appears to be managed appropriately and there is improvement. Will continue present management.
[2016-06-03] MEDS ORDERED: GLARGINE INSULIN (LANTUS) 100 UNITS/ML PEN SQ SCH (09:00)
[2016-06-03] MEDS ORDERED: INSULIN GLARGINE 60 UNIT SQ SCH (09:00)
[2016-06-03] MEDS ORDERED: ASPIRIN 325 MG TAB PO SCH (09:00)
[2016-06-03] MEDS: BUDESONIDE 0.5 MG NEB NEB SCH (09:07)
[2016-06-03] MEDS: CARVEDILOL 3.125 MG TAB PO SCH (10:40)
[2016-06-03] MEDS: LISINOPRIL 20 MG TAB PO SCH (10:40)
[2016-06-03] MEDS: AMIODARONE 200 MG TAB PO SCH ×2 (12:46→20:08)
--- NOTE | 2016-06-03 14:50 | CAPUECHO ---
INDICATION: SOB HEIGHT: 182.9 cm (6 ft 0.0 in) WEIGHT: 102.5 kg (226.0 lbs) BP: 117/86 BSA: 2.238117 m MEASUREMENTS 2D RVIDd: 4.5 cm IVSd: 1.2 cm LVIDd: 6.1 cm LVPWd: 1.2 cm LVIDs: 5.3 cm EF(Teich): 28.05 % LA Diam: 4.9 cm EF Biplane: 13.91 % LAESV MOD A4C: 108.6 ml LAESV MOD A2C: 136.6 ml LAESV Index (A-L): 59.69 ml/m DOPPLER MV E Dada: 0.80 m/s MV A Dada: 0.00 m/s MV PHT: 44.82 ms MVA By PHT: 4.91 cm LVOT Vmax: 0.54 m/s AV Vmax: 0.94 m/s TR Vmax: 2.00 m/s TR maxP mmHg RVSP: 26.01 mmHg FINDINGS ------- Procedure:2D images, m-mode, color and spectral Doppler were obtained and reviewed. ECG rhythm:Atrial fibrillation. Study quality:This was a technically difficult study with suboptimal views. Left Ventricle:The left ventricle is mildly dilated. There is mild concentric left ventricular hyp ertrophy. Overall left ventricular systolic function is severely impaired with, an EF between 20 - 25 %. Right Ventricle:The right ventricle is normal in size and function. Pacer wire present. Left Atrium:The left atrium is moderately dilated. Left atrium is moderately dilated by volume. Right Atrium:The right atrium is normal in size and function. Electronic pacemaker lead seen in th e right atrial cavity. Aortic Valve:The aortic valve is trileaflet, and appears structurally normal. No aortic stenosis or regurgitation. There is mild aortic valve sclerosis. There is mild aortic regurgitation. Mitral Valve:Normal appearing mitral valve. There is trace to mild mitral regurgitation. Tricuspid Valve:The tricuspid valve appears structurally normal. Mild tricuspid regurgitation pres ent. The right ventricular systolic pressure, as measured by Doppler, is 26 mmhg. Pulmonic Valve:The pulmonic valve is normal. Trace/mild (physiologic) pulmonic regurgitation. Aorta:The aortic root, ascending aorta and aortic arch appear normal. IVC:Normal inferior vena cava with normal inspiratory collapse. Pericardium:There is no pericardial effusion. CONCLUSIONS 1. This was a technically difficult study with suboptimal views. 2. Overall left ventricular systolic function is severely impaired with, an EF between 20 - 25 %. 3. The left atrium is moderately dilated. 4. There is trace to mild mitral regurgitation. 5. Mild tricuspid regurgitation present. 6. The right ventricular systolic pressure, as measured by Doppler, is 26 mmhg. Electronically Signed By: Brian Chavarria MD -- Electronically Signed On: 14:40:26
[2016-06-03] MEDS ORDERED: NPH INSULIN 100 UNITS/ML PEN SQ ONE ×2 (16:59→17:10)
[2016-06-03] MEDS ORDERED: REGULAR INSULIN 100 UNITS/ML - 3 ML VIAL SQ ONE (16:59)
--- NOTE | 2016-06-03 17:02 | GENMEDPROG ---
Subjective Note: Patient with no new complaints. He seems very lonely and needing the company of others. Unfortunately he does not qualify for skilled facility he walked 120 feet. However his poor ejection fraction will certainly qualify him for cardiac rehab which may provide a social environment he needs. Notes Reviewed: Yes Events from last night noted and discussed with Clinical Staff Current Medication List: Reviewed Currently: Reports: HASKINS, SOB. Denies: Cough, Abdominal Pain, Fever/Chills DVT Prophylaxis: Yes - Physical Examination Vital Signs and I&O: Last Vital Signs Temp 98.1 F 06/03/16 15:46 Pulse 70 06/03/16 15:46 Resp 18 06/03/16 15:46 BP 117/67 06/03/16 15:46 Pulse Ox 94 06/03/16 15:46 Oxygen Pulse Oxygen Saturation 94 O2 Device Room Air Oxygen Flow Rate Fraction of Inspired Oxygen ( FIO2) Intake & Output 05/31/16 06/01/16 06/02/16 06/03/16 23:59 23:59 23:59 23:59 Intake Total 340 817 Output Total 875 1377 Balance -535 -1683 Patient's weight 96.615 kg 95.436 kg General: Alert, Oriented x3, No acute distress, Well appearing, Well nourished HEENT: Normal (Normocephalic, atraumatic;EOMI.Sclera white, Nares patent, without discharge or bleeding. No oropharyngeal lesions or erythema. Mucous membranes are dry.) Neck: Non-tender, Full range of motion, Normal Trachea alignment, Normal inspection (No cervical lymphadenopathy. No supraclavicular lymphadenopathy.), No Masses palpable, Supple Lymphatics: Normal (no adenopathy) Respiratory: Diminished, Rales (Few scattered rales at the bases prolonged expiratory phase), Rhonchi (FAINT B/L) Cardiovascular: Regular rate and rhythm (No bradycardia or tachycardia), Normal S1, No Gallops,Rubs/Murmurs, Normal S2, Good Pedal Pulses (DP pulses 2+ bilaterally) GI: Normal bowel sounds (normal active sounds), Soft (non-distended), Non tender , No hepatospenomegaly, No masses Extremities/Musculoskeletal: Normal pulses (DP pulses 2+ bilaterally) Skin: Warm,Dry and Intact, No rashes, No significant lesion Neurological: Strength at 5/5 X4 ext (Motor 5/5 throughout.), Normal tone, Cranial nerves 3-12 NL ( 2-12 grossly intact.) Psych/Mental Status: Appropriate, Normal Affect Lab/DI/Studies Reviewed: Laboratory Results - last 24 hr 06/02/16 06/02/16 06/02/16 14:13 14:13 17:15 POC Capillary Glucose Hemoglobin A1c 8.2 H Magnesium Troponin I < 0.01 Triglycerides Cholesterol LDL Cholesterol, Calc VLDL Cholesterol, Calc HDL Cholesterol Cholesterol/HDL Ratio TSH 3.09 06/02/16 06/02/16 06/02/16 18:28 20:49 21:55 POC Capillary Glucose 259 H 329 H 187 H Hemoglobin A1c Magnesium Troponin I Triglycerides Cholesterol LDL Cholesterol, Calc VLDL Cholesterol, Calc HDL Cholesterol Cholesterol/HDL Ratio TSH 06/03/16 06/03/16 06/03/16 05:29 07:23 10:36 POC Capillary Glucose 169 H 280 H Hemoglobin A1c Magnesium 2.10 Troponin I Triglycerides 200 H Cholesterol 159 LDL Cholesterol, Calc 79.0 VLDL Cholesterol, Calc 40.0 HDL Cholesterol 40.0 Cholesterol/HDL Ratio 4.0 TSH Echocardiogram: CONCLUSIONS 1. This was a technically difficult study with suboptimal views. 2. Overall left ventricular systolic function is severely impaired with, an EF between 20 - 25 %. 3. The left atrium is moderately dilated. 4. There is trace to mild mitral regurgitation. 5. Mild tricuspid regurgitation present. 6. The right ventricular systolic pressure, as measured by Doppler, is 26 mmhg. Electronically Signed By: Brian Chavarria MD -- Electronically Signed On: 14:40:26 Laboratory Tests 06/02/16 14:13 Hemoglobin A1c 8.2 H - Assessment (1) Cardiac asthma Acute I50.1 - LEFT VENTRICULAR FAILURE Comment/Plan: With an EF of 20-25% is likely his asthma was cardiac in nature continue aggressive management of congestive heart failure. (2) CHF (congestive heart failure) Chronic I50.9 - HEART FAILURE, UNSPECIFIED Qualifiers: Congestive heart failure type: systolic Congestive heart failure chronicity : acute Qualified Code(s): I50.21 - Acute systolic (congestive) heart failure Comment/Plan: Echocardiogram revealed a surprisingly low ejection fraction of 20 -25%. Will discuss with Cardiology. (3) CKD (chronic kidney disease) Acute N18.9 - CHRONIC KIDNEY DISEASE, UNSPECIFIED Qualifiers: Chronic kidney disease stage: stage 3 (moderate) Qualified Code(s): N18.3 - Chronic kidney disease, stage 3 (moderate) Comment/Plan: Likely related to his uncontrolled diabetes. Check urine microalbumin. Avoid nephrotoxins agents, will hold his Lasix and HARISH-inhibitor as he received contrast media for this CT scan. Monitor closely. (4) COPD (chronic obstructive pulmonary disease) Chronic J44.9 - CHRONIC OBSTRUCTIVE PULMONARY DISEASE, UNSPECIFIED Qualifiers: COPD type: emphysema Chronic bronchitis type: C Emphysema type: unspecified Qualified Code(s): J43.9 - Emphysema, unspecified Comment/Plan: Will treat with nebs and oxygen. Consider steroids if necessary. (5) Charcot foot due to diabetes mellitus Chronic E11.610 - TYPE 2 DIABETES MELLITUS W DIABETIC NEUROPATHIC ARTHROPATHY (6) DMII (diabetes mellitus, type 2) Chronic E11.9 - TYPE 2 DIABETES MELLITUS WITHOUT COMPLICATIONS Qualifiers: Diabetes mellitus complication status: with skin complications Diabetes mellitus complication detail: with foot ulcer Diabetic retinopathy severity: D Proliferative retinopathy type: P Diabetes mellitus macular edema: D Diabetes mellitus terminal worker insulin use: with terminal worker use Laterality: L Chronic kidney disease stage: C Qualified Code(s): E11.621 - Type 2 diabetes mellitus with foot ulcer; L97.509 - Non-pressure chronic ulcer of other part of unspecified foot with unspecified severity; Z79.4 - FDC (current) use of insulin Comment/Plan: Check urinary microalbumin hemoglobin A1c etc monitor very closely. Need to get sugars under control. (7) Dyspnea Acute R06.00 - DYSPNEA, UNSPECIFIED Qualifiers: Dyspnea type: shortness of breath Qualified Code(s): R06.02 - Shortness of breath Comment/Plan: Likely related to exacerbation of heart failure plus-minus congestive heart failure. Continue diuresis and reassess in the next 24 hours. - Plan Continue evidence based congestive heart failure protocol.. Disposition Plan: ? Case Care Discussed with: Patient, Consultants, Nursing Staff Education/Counseling Given To: Patient, Family Member Education/Counseling Given Regarding: Diagnosis, Treatment, Prognosis, Follow Up , Disposition Plan Total Time: 45 min Critical Care: No Couseling Time (>50% in counseling/coordination): No
[2016-06-03] MEDS: ENOXAPARIN 40 MG/0.4 ML PFS SQ SCH (17:22)
[2016-06-03] MEDS ORDERED: NPH INSULIN 100 UNITS/ML PEN SQ SCH (18:00)
[2016-06-03] MEDS: TRAZODONE 100 MG TAB PO SCH (20:08)
[2016-06-04 03:53] VITALS: BMI 28.1
[2016-06-04] MEDS: Furosemide 100 MG/10 ML VIAL IV SCH (06:06)
[2016-06-04] MEDS: REGULAR INSULIN 100 UNITS/ML - 3 ML VIAL SQ SCH (06:06)
[2016-06-04] MEDS: NITROGLYCERINE 2 % OINTMENT PACK TOP SCH (06:07)
[2016-06-04] MEDS: BUDESONIDE 0.5 MG NEB NEB SCH (07:21)
[2016-06-04 07:33] VITALS: BP 122/85; TEMP 97.7
[2016-06-04] MEDS ORDERED: GLARGINE INSULIN (LANTUS) 100 UNITS/ML PEN SQ SCH (09:00)
[2016-06-04] MEDS: GLIPIZIDE 10 MG PO SCH (09:07)
[2016-06-04] MEDS: CARVEDILOL 3.125 MG TAB PO SCH (09:10)
[2016-06-04] MEDS: ATORVASTATIN 40 MG TAB PO SCH (09:10)
[2016-06-04] MEDS: POTASSIUM CHLORIDE 20 MEQ TAB PO SCH (09:10)
[2016-06-04] MEDS: LISINOPRIL 20 MG TAB PO SCH (09:11)
[2016-06-04] MEDS: LORAZEPAM 1 MG TAB PO SCH (09:19)
[2016-06-04 09:27] LABS: AUTOMATED BASOPHIL 0.3 % (0-2); AUTOMATED LYMPH 12.8 % (17-44); AUTOMATED MONOCYTE 7.9 % (3-10); MPV 7.8 fL (7.4-10.4)
--- NOTE | 2016-06-04 10:01 | PCM.CARD ---
- Subjective Reason for visit: Follow up congestive heart failure Doing very well. Walk on the hallway with no major difficulties. Vital Signs: Last Vital Signs Temp 97.7 F 06/04/16 07:28 Pulse 70 06/04/16 07:28 Resp 19 06/04/16 07:28 BP 122/85 06/04/16 07:28 Pulse Ox 92 06/04/16 09:25 PE: General Appearance: Well developed. Well nourished. In no acute distress. Lungs: Chest was not overinflated. Clear to auscultation. Poor air entry. Cardiovascular: Jugular Venous Distention: JVD not increased. Heart Rate And Rhythm: Irregular. Heart Sounds: Normal. Murmurs: No murmurs were heard. Carotid Arteries: Carotid pulses were normal. No bruit in the carotid artery. Edema: Not present. Lower extremities pulses normal (including femoral popliteal and dorsalis pedis) . Musculoskeletal System: General/bilateral: No cyanosis of the fingers. Neurological: Oriented to time, place, and person. Nails: No clubbing of the fingernails. Lab/DI Results Reviewed: Laboratory Results - last 24 hr 06/03/16 06/03/16 06/03/16 10:36 17:10 19:36 WBC RBC Hgb Hct MCV MCH MCHC RDW Plt Count MPV Neut % (Auto) Lymph % (Auto) [place] % (Auto) Eos % (Auto) Baso % (Auto) Absolute Neuts (auto) Absolute Lymphs (auto) POC Capillary Glucose 280 H 219 H 123 H 06/04/16 06/04/16 05:34 09:13 WBC 14.0 H RBC 6.52 H Hgb 20.7 H Hct 60.4 H MCV 93 MCH 31.7 MCHC 34.2 RDW 15.4 H Plt Count 203 MPV 7.8 Neut % (Auto) 78.0 H Lymph % (Auto) 12.8 L [place] % (Auto) 7.9 Eos % (Auto) 1.0 Baso % (Auto) 0.3 Absolute Neuts (auto) 10.92 H Absolute Lymphs (auto) 1.68 POC Capillary Glucose 82 - Assessment/Plan (1) CHF (congestive heart failure) Chronic I50.9 - HEART FAILURE, UNSPECIFIED Present on Admission: Yes systolic acute I50.21 - Acute systolic (congestive) heart failure Comment/Plan: Seems to be compensated from cardiac standpoint of view. Will discharge him home with slightly higher dose of diuretic. He was taking 40 mg twice daily will go 60 morning and 40 in the afternoon. Will maintain the same dose of potassium. (2) Atrial fibrillation Chronic I48.91 - UNSPECIFIED ATRIAL FIBRILLATION chronic I48.2 - Chronic atrial fibrillation Comment/Plan: Rate control, not anticoagulated because of complication that he get prior (3) Biventricular cardiac pacemaker in situ Chronic Z95.0 - PRESENCE OF CARDIAC PACEMAKER Present on Admission: Yes Comment/Plan: Present, will interrogate this in the office. (4) COPD (chronic obstructive pulmonary disease) Chronic J44.9 - CHRONIC OBSTRUCTIVE PULMONARY DISEASE, UNSPECIFIED Present on Admission: Yes emphysema C unspecified J43.9 - Emphysema, unspecified Comment/Plan: Managed by Internal Medicine team. Improved quite significantly. 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 - Plan Overall he improved quite significantly. Will follow him up in the office.
[2016-06-04 10:40] VITALS: PULSE 72
[2016-06-04 10:46] LABS: BLOOD UREA NITROGEN 56 MG/DL (9-20); CALCIUM 9.6 MG/DL (8.4-10.2); CALCULATED OSMOLALITY 284 MOs/Kg (270-290); CHLORIDE 93 mEq/L (98-107); GLUCOSE 204 MG/DL (70-99); SODIUM LEVEL 136 mEq/L (137-146)
--- NOTE | 2016-06-08 13:51 | PCM.DCS92 ---
- Final/Secondary Discharge Diagnosis (1) Cardiac asthma Resolved I50.1 - LEFT VENTRICULAR FAILURE Present on Admission: Yes Comment: With an EF of 20-25% is likely his asthma was cardiac in nature continue aggressive management of congestive heart failure. (2) CHF (congestive heart failure) Chronic I50.9 - HEART FAILURE, UNSPECIFIED Present on Admission: Yes systolic acute I50.21 - Acute systolic (congestive) heart failure Comment: Echocardiogram revealed a surprisingly low ejection fraction of 20-25% . Will discuss with Cardiology. (3) CKD (chronic kidney disease) Chronic N18.9 - CHRONIC KIDNEY DISEASE, UNSPECIFIED Present on Admission: Yes stage 3 (moderate) N18.3 - Chronic kidney disease, stage 3 (moderate) Comment: Likely related to his uncontrolled diabetes. Check urine microalbumin. Avoid nephrotoxins agents, will hold his Lasix and HARISH-inhibitor as he received contrast media for this CT scan. Monitor closely. (4) COPD (chronic obstructive pulmonary disease) Chronic J44.9 - CHRONIC OBSTRUCTIVE PULMONARY DISEASE, UNSPECIFIED Present on Admission: Yes emphysema C unspecified J43.9 - Emphysema, unspecified Comment: Will treat with nebs and oxygen. Consider steroids if necessary. 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 Need to get sugars under control. (7) Dyspnea Acute R06.00 - DYSPNEA, UNSPECIFIED Present on Admission: Yes shortness of breath R06.02 - Shortness of breath Comment: Likely related to exacerbation of heart failure plus-minus congestive heart failure. Continue diuresis and reassess in the next 24 hours. Discharge Disposition: Discharge w/ Home Health (RN, PT) Discharge Condition: Improved Cognitive Discharge Status: Unimpaired Fuctional Discharge Status: Walker Assistance, Deconditioning, Ambulatory Dysfunction Physician Follow up/Referrals: Elvis Everett MD [Staff Physician] - One Week Home Medications / New Prescriptions: New POTASSIUM CHLORIDE Tablet [K-DUR 20 mEq Tablet*] 20 meq PO BIDWM #60 tab.er.prt Insulin Glargine [Lantus Pen] 80 units SQ DAILY #1 pen Atorvastatin Calcium [Lipitor] 40 mg PO DAILY #30 tablet Continue Lisinopril [Prinivil] 20 mg PO DAILY Furosemide [Lasix] 40 mg PO BID Aspirin [Johnathon Aspirin] 325 mg PO DAILY Allopurinol [Zyloprim] 300 mg PO DAILY PRN PRN Reason: GOUT FLARE Budesonide/Formoterol Fumarate [Symbicort 80-4.5 Mcg Inhaler] 2 puff INH BID PRN PRN Reason: Shortness Of Breath Glipizide Xl [Glucotrol Xl] 10 mg PO QAM Carvedilol [Coreg] 3.125 mg PO DAILY Amiodarone HCl [Pacerone] 100 mg PO BID Colchicine [Colcrys] 0.6 mg PO DIR PRN PRN Reason: GOUT FLARE UPS Albuterol Sulfate [Ventolin Hfa] 1 - 2 puff INH Q4H PRN #1 each PRN Reason: SHORTNESS OF BREATH Trazodone HCl [Desyrel] 100 mg PO QHS #60 tablet Budesonide [Pulmicort] 0.5 mg NEB DAILY #30 ampul.neb Albuterol Sulfate MDI [Proventil HFA] 2 puff INH Q4 PRN #1 inhaler PRN Reason: Dyspnea Lorazepam [Ativan] 1 mg PO BID #60 tab Discontinued Insulin Glargine,Hum.rec.anlog [Lantus] 60 unit SQ DAILY Fluvastatin Sodium [Lescol] 40 mg PO DAILY Levofloxacin [Levaquin] 750 mg PO DAILY #10 tab Prednisone [Sterapred 10 mg/6 day pack] 21 tab PO DIR #1 pack Discharge Home Medication List Aspirin [Johnathon Aspirin] 325 mg PO DAILY 03/19/13 [History Confirmed 06/02/16] Furosemide [Lasix] 40 mg PO BID 03/19/13 [History Confirmed 06/02/16] Lisinopril [Prinivil] 20 mg PO DAILY 03/19/13 [History Confirmed 06/02/16] Allopurinol [Zyloprim] 300 mg PO DAILY PRN 04/30/15 [History Confirmed 06/02/16] Budesonide/Formoterol Fumarate [Symbicort 80-4.5 Mcg Inhaler] 2 puff INH BID PRN 04/30/15 [History Confirmed 06/02/16] Carvedilol [Coreg] 3.125 mg PO DAILY 08/16/15 [History Confirmed 06/02/16] Glipizide Xl [Glucotrol Xl] 10 mg PO QAM 08/16/15 [History Confirmed 06/02/16] Amiodarone HCl [Pacerone] 100 mg PO BID 11/06/15 [History Confirmed 06/02/16] Albuterol Sulfate [Ventolin Hfa] 1 - 2 puff INH Q4H PRN #1 each 04/16/16 [Rx Confirmed 06/02/16] Colchicine [Colcrys] 0.6 mg PO DIR PRN 04/16/16 [History Confirmed 06/02/16] Trazodone HCl [Desyrel] 100 mg PO QHS #60 tablet 04/16/16 [Rx Confirmed 06/02/16 ] Budesonide [Pulmicort] 0.5 mg NEB DAILY #30 ampul.neb 05/07/16 [Rx Confirmed ] Albuterol Sulfate MDI [Proventil HFA] 2 puff INH Q4 PRN #1 inhaler 05/28/16 [Rx Confirmed 06/02/16] Lorazepam [Ativan] 1 mg PO BID #60 tab 05/28/16 [Rx Confirmed 06/02/16] Atorvastatin Calcium [Lipitor] 40 mg PO DAILY #30 tablet 06/04/16 [Rx] Insulin Glargine [Lantus Pen] 80 units SQ DAILY #1 pen 06/04/16 [Rx] POTASSIUM CHLORIDE Tablet [K-DUR 20 mEq Tablet*] 20 meq PO BIDWM #60 tab.er.prt 06/04/16 [Rx] New Discharge Medications (Rx) Atorvastatin Calcium [Lipitor] 40 mg PO DAILY #30 tablet 06/04/16 [Rx] Insulin Glargine [Lantus Pen] 80 units SQ DAILY #1 pen 06/04/16 [Rx] POTASSIUM CHLORIDE Tablet [K-DUR 20 mEq Tablet*] 20 meq PO BIDWM #60 tab.er.prt 06/04/16 [Rx] O2 Device: Room Air Diet at Discharge: Heart Healthy, Low Salt, Fluid Restricted (1200 ml/24 hours) Activity: As Tolerated Call Office For: Worsening Symptoms, Fever over 100.5, Pain Uncontrolled By Meds - DC Summary Notes HPI/Notes: Dr. Perez contact me approximately 5:30 p.m. and has been to see the patient in consultation for Cardiology continuity. He is known to my practice with a history of severe dilated cardiomyopathy with markedly reduced ejection fraction is biventricular pacemaker defibrillator chronic atrial fibrillation chronic obstructive lung disease and cirrhosis. He is not anticoagulated because of major hemorrhagic complications in the past. He was in my office Monday for routine visit after ED visit chest prior pre is felt to have had a flu-like illness. Seen in my office to short of breath at rest impaired at both cardiac heart failure and respiratory COPD deterioration his BNP level is markedly elevated increases diuretics and unfortunately failed improvement presents the hospital with decompensated heart failure. He does sodium restrict weighs daily and is weights are actually down. He is compliant with his diet and his medications. When seen Monday he was short of breath at rest any activities and was having orthopnea but not PND. He had no response to diuresis and in fact is worsened. Although his breathing was unimproved and in fact worsened today he has lost 4 lb in his peripheral edema is diminished. Recently despite decompensated heart failure marked edema his weight is down. Hospital Course Note:: Discharge summary on patient named SANCHEZ OVALLE admitted to [facility] on 06/02/16 by Inez Perez MD. Date of discharge is []. Gentleman admitted to the hospital with complaints of shortness of breath. 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 He had seen him earlier in the week and he told him that he did not feel better to come into the ER. In the emergency department he was noted to be volume overloaded and having episodes of wheezing initially he was diagnosed with CHRONIC OBSTRUCTIVE PULMONARY DISEASE several days ago but given his cardiac history is felt that he probably had a CHRONIC OBSTRUCTIVE PULMONARY DISEASE exacerbation. He was admitted into the hospital an echocardiogram was obtained and showed an ejection fraction 20-25%. Patient does have a pacemaker in place but at this point I am unsure what is AICD and pacemaker. Patient was diuresed with Lasix and did quite well. On the morning of discharge she was able to ambulate down the krishna with O2 sats of 93-94% on room air. He has lost at least 3 lb of water weight. At this point patient has reached maximal benefit of hospitalization. He is stable for discharge home. Total Time: 45 minutes. Code: 23222 (>30min.) - Physical Exam Vital Signs: Last Vital Signs Temp 97.7 F 06/04/16 07:28 Pulse 70 06/04/16 07:28 Resp 19 06/04/16 07:28 BP 122/85 06/04/16 07:28 Pulse Ox 92 06/04/16 09:25 Oxygen Pulse Oxygen Saturation 92 O2 Device Room Air Oxygen Flow Rate Fraction of Inspired Oxygen ( FIO2) Constitutional: Alert (Awake, Fully oriented. Normal and appropriate affect.Well appearing. Well nourished.), Distress (Very short of breath) Oriented to: Time, Person, Place - HEENT Head: Normal (normocephalic, atraumatic.), Other (No cervical lymphadenopathy. No supraclavicular lymphadenopathy. Neck: No palpable mass, supple , trachea midline.) Eye: Normal (pupils equal, reactive to light, and round; EOMI, Sclera white) Oropharynx: Normal (Pharynx: Moist without exudate,Gums-no swelling, No oropharyngeal lesions or erythema, Mucous membranes are dry.) Tympanic Membrane: Normal (no discharge) ENT EAC: Normal (No oropharyngeal lesions or erythema. Mucous membranes are dry. ) TMJ: Normal Nose: No Symptoms Reported (septum midline, Nares patent, without discharge or bleeding.) - Respiratory/Cardiovascular Respiratory: Diminished, Rales (Few scattered rales at the bases prolonged expiratory phase), Rhonchi (FAINT B/L) - GI Auscultation: Normal (normal active sounds) Palpation: Normal (Soft,non distended,nontender. No hepatosplenomegaly.) Tenderness: Non tender (No rebound or guarding) Novak's Sign: Negative - Musculoskeletal Back: Normal (Non-Tender) Extremities: Edema (2+) - Integumentary Lymphatics: Normal (no adenopathy) - Neurologic Memory Impaired: Normal Motor Function: Normal (Motor 5/5 throughout.Normal tone, Pulses 2+ No cyanosis or edema, FROM) Cranial Nerve: Normal (CN II-XII intact sensation, strength 5/5) Cerebellar: Normal (Babinski: toes downgoing bilaterally. Intact Finger to nose. Sensory grossly intact to light touch. Intact rapid alternating movements bilaterally. No pronator drift.) Mood Description: Normal (Fully oriented. Normal and appropriate affect.) Perception: Normal (Normal and appropriate affect.) - Other Exam Other Exam Findings: Laboratory Results - last 24 hr 06/03/16 06/03/16 06/03/16 10:36 17:10 19:36 WBC RBC Hgb Hct MCV MCH MCHC RDW Plt Count MPV Neut % (Auto) Lymph % (Auto) Gallia % (Auto) Eos % (Auto) Baso % (Auto) Absolute Neuts (auto) Absolute Lymphs (auto) POC Capillary Glucose 280 H 219 H 123 H 06/04/16 06/04/16 05:34 09:13 WBC 14.0 H RBC 6.52 H Hgb 20.7 H Hct 60.4 H MCV 93 MCH 31.7 MCHC 34.2 RDW 15.4 H Plt Count 203 MPV 7.8 Neut % (Auto) 78.0 H Lymph % (Auto) 12.8 L Gallia % (Auto) 7.9 Eos % (Auto) 1.0 Baso % (Auto) 0.3 Absolute Neuts (auto) 10.92 H Absolute Lymphs (auto) 1.68 POC Capillary Glucose 82 <Electronically signed by Inez Perez MD> 06/04/16 [id number] Courtesy Copy to:: NO DEFINED PROVIDER~ MTDD
== END 2016-06-04 11:00 | disposition home health service (06) | DRG 292 ==
LOC: ED 14:01 → PCU 17:25
PROVIDERS: ADMIT Hospitalist; ATTEND Hospitalist
PROC: 039B3ZZ Drainage of Right Radial Artery, Percutaneous Approach (ICD-10-PCS; principal; 2016-06-02)
DX: I50.23 Acute on chronic systolic (congestive) heart failure (principal); I42.9 Cardiomyopathy, unspecified; E11.22 Type 2 diabetes mellitus with diabetic chronic kidney disease; I50.1 Left ventricular failure, unspecified; J44.9 Chronic obstructive pulmonary disease, unspecified; E11.610 Type 2 diabetes mellitus with diabetic neuropathic arthropathy; E11.621 Type 2 diabetes mellitus with foot ulcer; L97.509 Non-pressure chronic ulcer of other part of unspecified foot with unspecified severity; Z79.4 Long term (current) use of insulin; I48.2 Chronic atrial fibrillation; I25.2 Old myocardial infarction; M10.9 Gout, unspecified; F41.9 Anxiety disorder, unspecified; Z88.8 Allergy status to other drugs, medicaments and biological substances; Z79.82 Long term (current) use of aspirin; Z79.899 Other long term (current) drug therapy; Z87.891 Personal history of nicotine dependence; Z95.0 Presence of cardiac pacemaker; G47.33 Obstructive sleep apnea (adult) (pediatric); I12.9 Hypertensive chronic kidney disease with stage 1 through stage 4 chronic kidney disease, or unspecified chronic kidney disease; N18.3 Chronic kidney disease, stage 3 (moderate)
CPT/HCPCS: 36415; 36600; 71020; 80048; 80053; 80061; 82043; 82803; 82962; 83036; 83735; 83880; 84443; 84484; 85025; 85610; 85730; 93005; 93306; 94640; 96372; 97161; 99284; J1650; J1940; J3490; S5571

== ENCOUNTER 2016-06-10 08:01 | Inpatient (IN) | payer MEDICARE ==
[2016-06-10] MEDS ORDERED: HYDROmorphone 1 MG INJECTION IV ONE ×4 (08:18→11:49)
--- NOTE | 2016-06-10 08:18 | EDPRACDOC ---
ED Hip Problem HPI - General Information Chief Complaint: Hip Pain Stated Complaint: FALL Time Seen by Provider: 06/10/16 08:06 Mode of Arrival: Ambulance Home Medications: Home Medications Aspirin [Johnathon Aspirin] 325 mg PO DAILY 03/19/13 Furosemide [Lasix] 40 mg PO BID 03/19/13 Lisinopril [Prinivil] 20 mg PO DAILY 03/19/13 Allopurinol [Zyloprim] 300 mg PO DAILY PRN 04/30/15 Budesonide/Formoterol Fumarate [Symbicort 80-4.5 Mcg Inhaler] 2 puff INH BID PRN 04/30/15 Carvedilol [Coreg] 3.125 mg PO DAILY 08/16/15 Glipizide Xl [Glucotrol Xl] 10 mg PO QAM 08/16/15 Amiodarone HCl [Pacerone] 100 mg PO BID 11/06/15 Albuterol Sulfate [Ventolin Hfa] 1 - 2 puff INH Q4H PRN #1 each 04/16/16 Colchicine [Colcrys] 0.6 mg PO DIR PRN 04/16/16 Trazodone HCl [Desyrel] 100 mg PO QHS #60 tablet 04/16/16 Budesonide [Pulmicort] 0.5 mg NEB DAILY #30 ampul.neb 05/07/16 Albuterol Sulfate MDI [Proventil HFA] 2 puff INH Q4 PRN #1 inhaler 05/28/16 Lorazepam [Ativan] 1 mg PO BID #60 tab 05/28/16 Atorvastatin Calcium [Lipitor] 40 mg PO DAILY #30 tablet 06/04/16 Insulin Glargine [Lantus Pen] 80 units SQ DAILY #1 pen 06/04/16 POTASSIUM CHLORIDE Tablet [K-DUR 20 mEq Tablet*] 20 meq PO BIDWM #60 tab.er.prt 06/04/16 Allergies/Adverse Reactions: Allergies Allergy/AdvReac Type Severity Reaction Status Date / Time amitriptyline HCl Allergy Nausea/Vomi Verified 06/10/16 08:10 [From Elavil] ting indomethacin Allergy Nausea/Vomi Verified 06/10/16 08:10 ting blood thinners Allergy See Uncoded 06/10/16 08:46 Comments - History of Present Illness Onset: THIS AM HPI: PT SLIPPED AND FELL ON HIS OUTSIDE PORCH WOOD FLOORS, SEVERE PAIN RIGHT HIP. UNABLE TO AMBULATE. CRAWLED UP TO HOUSE TO CALL AMBULANCE. SOME SKIN TEARS LEFT ELBOW, LEFT FOOT. RECENT HOSPITAL ADMIT FOR CHF. REPORTS BREATHING FINE ON DISCHARGE. PT REPORTS TETANUS UTD. 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 Denies: Liver Failure, Gastroesophageal Reflux Musculoskeletal History: Reports: Gout. Denies: Rheumatoid Arthritis Psychological History: Reports: Anxiety. Denies: Depression, Substance Use Disorder Systemic History: Reports: Diabetes. 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 Denies: Stroke - Social Medical History Smoking Status: Former smoker Social History: Denies: Substance Use Disorder EDM Review of Systems - Review of Systems ROS Negative Except as Marked: Yes All systems reviewed and were negative except as marked Constitutional: No Symptoms Reported - Physical Exam Constitutional: Alert (Awake), No apparent distress Oriented to: Time, Person, Place Last recorded Vital Signs: Last Vital Signs Temp 98.2 F 06/10/16 08:05 Pulse 77 06/10/16 08:05 Resp 20 06/10/16 08:05 BP 128/100 06/10/16 08:05 Pulse Ox 95 06/10/16 08:05 Oxygen Pulse Oxygen Saturation 95 O2 Device Oxygen Flow Rate Fraction of Inspired Oxygen ( FIO2) - HEENT Head: Normal ( normocephalic) Eye Exam: Normal (PERRL, EOMI, Sclera white) Oropharynx: Normal (Pharynx:Moist without exudate,Gums-no swelling) Nose: No Symptoms Reported (septum midline) Neck: Normal (FROM, trachea at midline) - Respiratory/Cardiovascular Respiratory: Normal - CTA (BBS clear to auscultation without adventitious sounds ) Cardiovascular: Normal (RRR without murmur, gallop or rub) - GI Auscultation: Normal (NABS) Palpation: Normal (Soft,No rebound or guarding, non distended) Tenderness: Non tender Novak's Sign: Negative - Musculoskeletal Back: Normal (Non-Tender) Extremities: Normal (Normal tone, Pulses 2+ No cyanosis or edema, FROM), Other ( RIGHT LEG SHORTENED AND EXTERNALLY ROTATED.) - Integumentary Skin: Normal, Warm, Dry Lymphatics: Normal (no adenopathy) - Neurologic Memory Impaired: Normal Motor Function: Normal (Normal tone, Pulses 2+ No cyanosis or edema, FROM) Cranial Nerve: Normal (CN II-X11 intact sensation, strength 5/5) Cerebellar: Normal Mood Description: Normal Perception: Normal - Results 06/10/16 08:10 06/10/16 08:10 - EKG EKG #1 EKG Time: 08:15 -: Yes EKG interpreted by me Rate: bpm: 76 Rhythm: Paced Comments: ABNORMAL EKG - Departure Yes I personally saw and evaluated the patient. Disposition: Admit IP To This Hospital Condition: Stable Prescriptions: No Action Lisinopril [Prinivil] 20 mg PO DAILY Furosemide [Lasix] 40 mg PO BID Aspirin [Johnathon Aspirin] 325 mg PO DAILY Allopurinol [Zyloprim] 300 mg PO DAILY PRN PRN Reason: GOUT FLARE Budesonide/Formoterol Fumarate [Symbicort 80-4.5 Mcg Inhaler] 2 puff INH BID PRN PRN Reason: Shortness Of Breath Glipizide Xl [Glucotrol Xl] 10 mg PO QAM Carvedilol [Coreg] 3.125 mg PO DAILY Amiodarone HCl [Pacerone] 100 mg PO BID Colchicine [Colcrys] 0.6 mg PO DIR PRN PRN Reason: GOUT FLARE UPS Albuterol Sulfate [Ventolin Hfa] 1 - 2 puff INH Q4H PRN #1 each PRN Reason: SHORTNESS OF BREATH Trazodone HCl [Desyrel] 100 mg PO QHS #60 tablet Budesonide [Pulmicort] 0.5 mg NEB DAILY #30 ampul.neb Albuterol Sulfate MDI [Proventil HFA] 2 puff INH Q4 PRN #1 inhaler PRN Reason: Dyspnea Lorazepam [Ativan] 1 mg PO BID #60 tab POTASSIUM CHLORIDE Tablet [K-DUR 20 mEq Tablet*] 20 meq PO BIDWM #60 tab.er.prt Insulin Glargine [Lantus Pen] 80 units SQ DAILY #1 pen Atorvastatin Calcium [Lipitor] 40 mg PO DAILY #30 tablet Decision to Admit Time: 09:19 Decision to admit date: 06/10/16 Decision to admit: from ED - Physician Consulted Orthopedics Time Called: 09:19 Provider Called: Johnathan Espinal Time Steelworker Returned Call: 09:20 Hospitalist Time Called: 09:20 Provider Called: Christa Christian Time Steelworker Returned Call: 09:23
[2016-06-10] MEDS ORDERED: ONDANSETRON HCL 4 MG/2 ML VIAL IV ONE (08:19)
[2016-06-10 08:26] LABS: AUTOMATED BASOPHIL 0.8 % (0-2); AUTOMATED EOSINOPHIL 1.5 % (0-5); AUTOMATED LYMPH 13.8 % (17-44); AUTOMATED NEUTROPHIL 77.9 % (45-76); MPV 8.5 fL (7.4-10.4)
[2016-06-10 08:35] LABS: BLOOD UREA NITROGEN 49 MG/DL (9-20); CALC CORRECTED 9.6 MG/DL (8.4-10.2); CALCIUM 9.2 MG/DL (8.4-10.2); CALCULATED OSMOLALITY 291 MOs/Kg (270-290); CHLORIDE 104 mEq/L (98-107); CPK TOTAL WITH POSSIBLE MB 73 IU/L (55-170); GLUCOSE 279 mg/dL (70-99); SODIUM LEVEL 139 mEq/L (137-146); TOTAL PROTEIN 6.7 G/DL (6.3-8.2)
[2016-06-10 08:44] LABS: PARTIAL THROMB. TIME 21.5 SEC (22-35)
--- NOTE | 2016-06-10 09:14 | DIRPT ---
CLINICAL DATA: Recent fall with right femoral fracture EXAM: CHEST 1 VIEW COMPARISON: 06/02/2016 FINDINGS: Cardiac shadow is enlarged. A defibrillator is again noted. The lungs are clear bilaterally. No acute bony abnormality is seen. Emphysematous changes are noted in the right base. IMPRESSION: No acute abnormality noted. Electronically Signed By: Pedro Diana M.D. On: 06/10/2016 09:11
--- NOTE | 2016-06-10 09:15 | DIRPT ---
CLINICAL DATA: 65-year-old male with right hip and knee pain. Patient slipped and fell on his porch wood floors earlier today. EXAM: RIGHT FEMUR - 2 VIEW COMPARISON: Concurrently obtained radiographs of the pelvis and chest FINDINGS: No evidence of acute fracture or malalignment involving the knee. No suprapatellar knee joint effusion. Subchondral cysts are noted along the posterior margin of the patella consistent with underlying chondromalacia. Atherosclerotic vascular calcifications are present within the superficial femoral artery. No focal soft tissue abnormality. IMPRESSION: 1. No acute fracture, malalignment or joint effusion. 2. 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 3. Atherosclerotic vascular calcifications. Electronically Signed By: Ryan Pardo M.D. On: 06/10/2016 09:13
--- NOTE | 2016-06-10 09:16 | DIRPT ---
CLINICAL DATA: Slip and fall on porch with right hip pain, initial encounter EXAM: BILATERAL HIP (WITH PELVIS) 3-4 VIEWS COMPARISON: None. FINDINGS: There is a fracture in the proximal right femur at the base of the femoral neck with impaction and angulation at the fracture site. It appears to extend into the intertrochanteric region as well. The pelvic ring is intact. No other focal abnormality is seen. IMPRESSION: Proximal right femoral fracture Electronically Signed By: Pedro Diana M.D. On: 06/10/2016 09:14
[2016-06-10] MEDS ORDERED: ONDANSETRON HCL 4 MG/2 ML VIAL IV PRN ×2 (09:35→11:34)
[2016-06-10] MEDS ORDERED: ACETAMINOPHEN 650 MG SUPP PR PRN (09:35)
[2016-06-10] MEDS ORDERED: SIMETHICONE 80 MG TAB PO PRN (09:35)
[2016-06-10] MEDS ORDERED: ACETAMINOPHEN 325 MG/TAB TABLET PO PRN (09:35)
[2016-06-10] MEDS ORDERED: Albuterol/Ipratropium Neb 3 ML NEB NEB PRN (09:35)
[2016-06-10] MEDS ORDERED: GLUCAGON 1 MG VIAL SQ PRN (09:35)
[2016-06-10] MEDS ORDERED: GLUCOSE (ORAL GEL) 15 GM TUBE PO PRN (09:35)
[2016-06-10] MEDS ORDERED: SODIUM CHLORIDE 0.9% 3 ML FLUSH FLUSH PRN (09:35)
[2016-06-10] MEDS ORDERED: METOCLOPRAMIDE 10 MG/2 ML VIAL IV PRN (09:35)
[2016-06-10] MEDS ORDERED: DOCUSATE-SENNA CONCENTRATE TAB PO PRN (09:35)
[2016-06-10] MEDS ORDERED: DEXTROSE 25 GM/50 ML PFS IV PRN (09:35)
[2016-06-10] MEDS ORDERED: BENZONATATE 100 MG PERLES PO PRN (09:35)
[2016-06-10] MEDS ORDERED: BUDESONIDE 0.5 MG NEB NEB PRN (09:42)
[2016-06-10] MEDS ORDERED: Non-Formulary Medication ITEM (Budesonide/Formoterol Fumarate [Symbicort 80-4.5 Mcg Inha INH PRN (09:42)
[2016-06-10] MEDS ORDERED: ALBUTEROL 6.7 GM MDI INH PRN (09:42)
[2016-06-10] MEDS ORDERED: MIDAZOLAM 2 MG/2 ML VIAL IV ONE (10:00)
[2016-06-10] MEDS ORDERED: FENTANYL 100 MCG/2 ML VIAL IV ONE (10:00)
[2016-06-10] MEDS ORDERED: LIDOCAINE 2% JELLY UROJET TOP ONE (10:14)
--- NOTE | 2016-06-10 10:20 | DIRPT ---
CLINICAL DATA: Right hip pain status post fall. EXAM: CT OF THE LOWER RIGHT EXTREMITY WITHOUT CONTRAST TECHNIQUE: Multidetector CT imaging of the right was performed according to the standard protocol. COMPARISON: None. FINDINGS: Fracture involving the base of the femoral neck with comminution of the right greater trochanter. Small fracture cleft extending to the superior most aspect of the lesser trochanter, but a majority of the fracture is involving the base of the femoral neck. No right hip dislocation. No aggressive lytic or sclerotic osseous lesion. Intact superior and inferior right pubic rami. No focal fluid collection or hematoma. Normal musculature. Peripheral vascular atherosclerotic disease. IMPRESSION: Fracture involving the base of the femoral neck with comminution of the right greater trochanter. Small fracture cleft extending to the superior most aspect of the lesser trochanter, but a majority of the fracture is involving the base of the femoral neck. Electronically Signed By: Luma Ayala On: 06/10/2016 10:17
--- NOTE | 2016-06-10 10:28 | HISTPHYS ---
- Chief Complaint pain in hip - History of Present Illness Mr. Ja King is a 65 year old gentleman who has a Charcot foot on the right side, and is somewhat clumsy in his gait. He stumbled and fell today and fell off the back deck, and suffered a right hip fracture. He crawled to a phone to call EMS and was brought to the ED by ambulance. He also has a past medical history of congestive heart failure with a cardiomyopathy and an ejection fraction of 20-25%. He is diabetic and has COPD. He was only recently discharged from this facility after a CHF exacerbation, and had his medications adjusted. He is not anticoagulated due to prior bleeding complications. - Medical History Cardiac History: Reports: Atrial Fibrillation, Hypertension, Congestive Heart Failure, Heart Attack, Cardiac Catheterization (three months ago), Internal Defibrillator, Pacemaker, Cardiomyopathy (EF 25%) Respiratory History: Reports: COPD, Emphysema GI/ History: Reports: Renal Disease (CKD-3), Kidney Stones. Denies: Liver Failure, Gastroesophageal Reflux Musculoskeletal History: Reports: Gout, Osteoarthritis (Charcot foot R). Denies : Rheumatoid Arthritis Systemic History: Reports: Diabetes. Denies: Cancer, Anemia Neurological History: Denies: Cerebrovascular Accident, Seizures Psychological History: Reports: Anxiety. Denies: Depression, Substance Use Disorder - Surgical History Reports: Cardiac Catheterization (three months ago), Other (PACEMAKER, ABLATION , surgery to R foot I&D) - Medictions/Allergies Allergies amitriptyline HCl [From Elavil] Allergy (Verified 06/10/16 08:10) Nausea/Vomiting indomethacin Allergy (Verified 06/10/16 08:10) Nausea/Vomiting blood thinners Allergy (Uncoded 06/10/16 08:46) See Comments states "I will bleed to " Home Medications Aspirin [Johnathon Aspirin] 325 mg PO DAILY 03/19/13 Furosemide [Lasix] 80 mg PO BID 03/19/13 Lisinopril [Prinivil] 20 mg PO DAILY 03/19/13 Budesonide/Formoterol Fumarate [Symbicort 80-4.5 Mcg Inhaler] 2 puff INH BID PRN 04/30/15 Carvedilol [Coreg] 3.125 mg PO DAILY 08/16/15 Glipizide Xl [Glucotrol Xl] 10 mg PO QAM 08/16/15 Amiodarone HCl [Pacerone] 100 mg PO BID 11/06/15 Trazodone HCl [Desyrel] 100 mg PO QHS #60 tablet 04/16/16 Albuterol Sulfate MDI [Proventil HFA] 2 puff INH Q4 PRN #1 inhaler 05/28/16 Lorazepam [Ativan] 1 mg PO BID #60 tab 05/28/16 POTASSIUM CHLORIDE Tablet [K-DUR 20 mEq Tablet*] 20 meq PO BIDWM #60 tab.er.prt 06/04/16 Atorvastatin Calcium [Lipitor] 40 mg PO QHS 06/10/16 Budesonide [Pulmicort] 0.5 mg NEB DAILY PRN 06/10/16 Insulin Glargine [Lantus Pen] 60 units SQ QAM 06/10/16 - Family History Reports: Hypertension (dad), Diabetes (sister), Cancer (cannot remember), Cardiac Disorders. Denies: Stroke - Social History Lives: Alone Smoking Status: Light tobacco smoker (less than 5/day) Social History: Denies: Alcohol Use, Substance Use Disorder - Review of Systems Constitutional: No Symptoms Reported Eyes: No Symptoms Reported. negative: Blurred Vision, Vision Loss Ears: No Symptoms Reported. negative: Hearing Loss Nose: negative: Bleeding, Congestion, Discharge Mouth: Denture, Dry Mouth, Poor Dentition Throat/Neck: No Symptoms Reported. negative: Hoarseness, Snoring Respiratory: negative: Cough, Shortness of Breath, Wheezing Cardiovascular: Palpitations. negative: Chest Pain, Edema Gastrointestinal: Constipation. negative: Nausea, Vomiting, Abdominal Pain Genitourinary: Benign prostatic hyperplasia (BPH). negative: Dysuria, Frequency , Testicular Pain, Nocturia Neurological: Gait Difficulty. negative: Dizziness, Weakness Musculoskeletal:: Osteoarthritis, Stiffness, Joint Pain (Charcot foot R) Allergic/Immunologic: No Symptoms Reported Hematologic: negative: Anemia Endocrine: No Symptoms Reported, Diabetes Psychiatric: No Symptoms Reported - Physical Exam Vital Signs: Initial Vitals Temperature 98.2 F 06/10/16 08:05 Pulse Rate 77 06/10/16 08:05 Respiratory Rate 20 06/10/16 08:05 Blood Pressure 128/100 06/10/16 08:05 Pulse Oxygen Saturation 95 06/10/16 08:05 Constitutional: Alert, Distress (mild) Oriented to: Time, Person, Place - HEENT Head: Normal Eye: Normal (PERRL; EOMI) Oropharynx: Membranes Dry, Other (full upper denture). negative: Drooling, Exudate, Red Tympanic Membrane: Dull ENT EAC: Normal Nose: No Symptoms Reported. negative: Bleeding, Congestion, Discharge Respiratory: Normal - CTA, Diminished. negative: Rales, Wheezes Cardiovascular: Normal (regular rhythm and rate), Other (has AICD palpable in L subclavian area) - GI Auscultation: Normal Palpation: Normal (soft, nondistended). negative: Enlarged liver, Enlarged spleen, Fluid Wave, Mass Tenderness: Non tender. negative: Guarding, Rebound, Rigidity Novak's Sign: Negative Rectal Exam: Normal, Heme negative stool, Rectal Tone (normla) - Musculoskeletal Extremities: Other (R leg externally rotated and foreshortened, foot with significant deformities of ankle and midfoot (Carcot foot) but without acute inflammation, tender to palpation over R greater trochanter, good perfusion and pulses in both feet, normal capillary refill both feet). negative: Pedal Edema - Integumentary Skin: Warm, Dry Lymphatics: Normal - Neurologic Memory Impaired: Normal Motor Function: Normal Cranial Nerve: Normal Cerebellar: Unable to Test Mood Description: Anxious Thought: Coherent Perception: Normal - Focused CV Perfusion Exam Vital Signs: Last Vital Signs Temp 98.2 F 06/10/16 08:05 Pulse 74 06/10/16 09:52 Resp 18 06/10/16 09:09 BP 128/79 06/10/16 09:52 Pulse Ox 96 06/10/16 09:52 - Lab Results Laboratory Tests 06/10/16 06/10/16 06/10/16 08:10 08:10 08:10 WBC 10.9 H Hgb 18.1 H D Hct 53.7 H Plt Count 167 Neut % (Auto) 77.9 H Lymph % (Auto) 13.8 L [place] % (Auto) 6.0 Eos % (Auto) 1.5 PT 9.9 INR 1.0 APTT 21.5 L Sodium 139 Potassium 4.8 Chloride 104 Carbon Dioxide 26 Anion Gap 14 BUN 49 H Creatinine 1.80 H Estimated GFR (MDRD) 38 L Glucose 279 H Calculated Osmolality 291 H Corrected Calcium 9.6 Total Bilirubin 1.5 H AST 32 ALT 34 Alkaline Phosphatase 176 H Creatine Kinase 73 Troponin I < 0.01 Total Protein 6.7 Albumin 3.6 Laboratory Tests 06/02/16 14:13 Hemoglobin A1c 8.2 H - Diagnostic Findings EKG: Demand pacemaker, with LBBB evident on intrinsic beats, septal and inferior ID's age undetermined, 76 bpm CXR:FINDINGS: Cardiac shadow is enlarged. A defibrillator is again noted. The lungs are clear bilaterally. No acute bony abnormality is seen. Emphysematous changes are noted in the right base. IMPRESSION: No acute abnormality noted. Electronically Signed By: Pedro Diana M.D. On: 06/10/2016 09:11 Bilateral hip/pelvis: IMPRESSION: Proximal right femoral fracture Electronically Signed By: Pedro Diana M.D. On: 06/10/2016 09:14 CT pelvis: IMPRESSION: Fracture involving the base of the femoral neck with comminution of the right greater trochanter. Small fracture cleft extending to the superior most aspect of the lesser trochanter, but a majority of the fracture is involving the base of the femoral neck. Electronically Signed By: Luma Ayala On: 06/10/2016 10:17 - Assessment (1) Intertrochanteric fracture of right femur S72.141A - DISPLACED INTERTROCHANTERIC FRACTURE OF RIGHT FEMUR, INIT Acute Present on Admission: Yes Qualifiers: Encounter type: initial encounter Fracture type: closed Qualified Code(s) : S72.141A - Displaced intertrochanteric fracture of right femur, initial encounter for closed fracture Admit, consult Dr. Espinal of the orthopedic service for repair of the hip fracture. The patient has just been hospitalized for stabilization of his CHF, and was only recently discharged. He suffered a mechanical fall due to gait instability. If his troponins are normal will clear for surgery today. (2) Systolic congestive heart failure with reduced left ventricular function, NYHA class 1 I50.20 - UNSPECIFIED SYSTOLIC (CONGESTIVE) HEART FAILURE Chronic Present on Admission: Yes EF=25% No sign of acute decompensation. Denies shortness of breath or chest pain at this time. If 2 troponins normal can go to surgery today. (3) Cardiomyopathy I42.9 - CARDIOMYOPATHY, UNSPECIFIED Chronic Present on Admission: Yes Qualifiers: Cardiomyopathy type: dilated Qualified Code(s): I42.0 - Dilated cardiomyopathy EF =20-25% Patient with history of HCVD & DM-2, recently discharged from hospital. No anticoagulation. (4) Atrial fibrillation I48.91 - UNSPECIFIED ATRIAL FIBRILLATION Chronic Present on Admission: Yes Qualifiers: Atrial fibrillation type: chronic Qualified Code(s): I48.2 - Chronic atrial fibrillation Not anticoagulated, just takes aspirin, due to prior history fo bleeding complications. (5) CKD (chronic kidney disease) N18.9 - CHRONIC KIDNEY DISEASE, UNSPECIFIED Chronic Present on Admission: Yes Qualifiers: Chronic kidney disease stage: stage 3 (moderate) Qualified Code(s): N18.3 - Chronic kidney disease, stage 3 (moderate) Likely related to his uncontrolled diabetes. Renal function stable at this time. Avoid nephrotoxic agents, hold his Lasix and HARISH-inhibitor until after surgery. Then resume. 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 Monitor FSBS ACHS, monitor very closely. Need to get sugars under control, for better wound healing. (7) COPD (chronic obstructive pulmonary disease) J44.9 - CHRONIC OBSTRUCTIVE PULMONARY DISEASE, UNSPECIFIED Chronic Present on Admission: Yes Qualifiers: COPD type: emphysema Emphysema type: unspecified Qualified Code(s): J43.9 - Emphysema, unspecified Will treat with Duonebs PRN and oxygen. Continue home inhalers. (8) Charcot foot due to diabetes mellitus E11.610 - TYPE 2 DIABETES MELLITUS W DIABETIC NEUROPATHIC ARTHROPATHY Chronic Present on Admission: Yes affecting gait. Will make PT aware prior to rehab. Case Care Discussed with: Patient, Consultants, Nursing Staff Total Time: 65 min
[2016-06-10] MEDS: NS 1,000 ML IV SCH (10:31)
[2016-06-10 10:42] LABS: LEUKOCYTES/URINE NEG (NEGATIVE); NITRITE/URINE NEG (NEGATIVE); URINE OCCULT BLOOD 1+ (NEG/TRACE); WBC/URINE 0-2 (0-2)
[2016-06-10] MEDS ORDERED: ASPIRIN 325 MG TAB PO SCH (11:00)
[2016-06-10] MEDS ORDERED: GLARGINE INSULIN (LANTUS) 100 UNITS/ML PEN SQ SCH (11:00)
[2016-06-10] MEDS ORDERED: hydrALAZINE 20 MG/ML VIAL IV PRN (11:34)
[2016-06-10] MEDS ORDERED: HYDROmorphone 1 MG INJECTION IV PRN ×3 (11:34→16:10)
[2016-06-10] MEDS ORDERED: ONDANSETRON HCL 4 MG ODT TAB PO PRN (11:34)
[2016-06-10] MEDS ORDERED: FENTANYL 100 MCG/2 ML VIAL IV PRN ×2 (11:34)
[2016-06-10] MEDS ORDERED: LABETALOL 20 MG/4 ML SYRINGE IV PRN (11:34)
[2016-06-10] MEDS ORDERED: PROMETHAZINE 25 MG/ML VIAL IV PRN (11:34)
[2016-06-10] MEDS ORDERED: MEPERIDINE 25 MG/ML TUBEX IV PRN (11:34)
--- NOTE | 2016-06-10 11:36 | SC.ANESPOS ---
Post-Anesthesia Note LOC: Fully Awake Post-Anesthesia Assessment: Awake, Returned to Baseline, Hemodynamically Stable , Pain Control Adequate Phase I & II Recovery Complete: Yes (Resolving spinal block) Apparent Anesthesia Complication: No : N - Vital Signs Blood Pressure: 93/63 Pulse: 77 Resp Rate: 14 O2 Sat: 97 Temp: 98 F
[2016-06-10] MEDS ORDERED: HYDROmorphone 1 MG INJECTION ONE (11:46)
--- NOTE | 2016-06-10 11:48 | HIM.ANES ---
Anesthesia Evaluation & Plan - Focused Review of Systems Cardiac History: Yes: Hx Hypertension, Hx Heart Attack, Hx Cardiac Catheterization (three months ago), Hx Pacemaker, Hx Internal Defibrillator, Hx Cardiac Disorders, Hx Congestive Heart Failure (Recent hospitalization/ compensated/EF 20-25%) HEENT: Yes: Cataracts (mild both eyes), Hx Vision Problem (reading glasses) Respiratory: Yes: Hx Emphysema, Hx Chronic Obstructive Pulmonary Disease (COPD) , Hx Sleep Apnea, Hx Snoring Gastrointestinal: Yes: Hx Colonoscopy (six months ago), Hx Endoscopy No: Hx Gastrointestinal Disorders Genitourinary: Yes: Hx Renal Disease (CKD-3) Neurological/Musculoskeletal: No: HX Cerebrovascular Accident, Hx Seizures, Hx Neurological Disorders Psychological: Yes Hx Anxiety, No Hx Depression, Yes Hx Mental/Emotional Disorders Endocrine: Yes: Hx Diet Controlled Diabetes, Hx Insulin Dependent Diabetes Blood/Autoimmune: No: Hx Anemia, Hx AIDS, Hx Hepatitis (type) Smoking Status: Light tobacco smoker (less than 5/day) Past Social History: Denies: Alcohol Use, Substance Use Disorder Surgical History: Yes: Other (PACEMAKER, ABLATION, surgery to R foot I&D) - Focused Physical Exam Mallampati: Class IV Thyromental Distance: Greater than 3 Neck: Full Range of Motion Dental: Removable Dental Work Cardiovascular/Chest: Normal Respiratory: Decreased breath sounds Any problems with anesthesia, including nausea and vomiting?: No Any relatives with a history of Malignant Hyperthermia?: No Does patient have a history of Malignant Hyperthermia?: No Beta Jamey given (if appropriate): Yes (Coreg) Other: Problem List Problem Status Onset Intertrochanteric fracture of right femur Acute Cardiomyopathy Chronic Systolic congestive heart failure with reduced left ventricular function, NYHA class 1 Chronic CHF (congestive heart failure) Acute Cellulitis of foot Acute Diabetic foot ulcers Acute Dyspnea Acute Hyponatremia Acute URI (upper respiratory infection) Acute Atrial fibrillation Chronic Biventricular cardiac pacemaker in situ Chronic CHF (congestive heart failure) Chronic CKD (chronic kidney disease) Chronic COPD (chronic obstructive pulmonary disease) Chronic Charcot foot due to diabetes mellitus Chronic DMII (diabetes mellitus, type 2) Chronic Systolic heart failure Chronic PT/PTT/INR/ PT 9.9 SEC (9.2-11.2) 06/10/16 08:10 INR 1.0 06/10/16 08:10 APTT 21.5 SEC (22-35) L 06/10/16 08:10 Allergies Allergy/AdvReac Type Severity Reaction Status Date / Time amitriptyline HCl Allergy Nausea/Vomi Verified 06/10/16 08:10 [From Elavil] ting indomethacin Allergy Nausea/Vomi Verified 06/10/16 08:10 ting blood thinners Allergy See Uncoded 06/10/16 08:46 Comments Home Medications Medication Instructions Recorded Last Taken Type Aspirin [Johnathon Aspirin] 325 mg PO DAILY 03/19/13 06/09/16 History Furosemide [Lasix] 80 mg PO BID 03/19/13 06/09/16 History Lisinopril [Prinivil] 20 mg PO DAILY 03/19/13 06/09/16 History Budesonide/Formoterol Fumarate 2 puff INH BID PRN 04/30/15 06/01/16 History [Symbicort 80-4.5 Mcg Inhaler] Carvedilol [Coreg] 3.125 mg PO DAILY 08/16/15 06/09/16 History Glipizide Xl [Glucotrol Xl] 10 mg PO QAM 08/16/15 06/09/16 History Amiodarone HCl [Pacerone] 100 mg PO BID 11/06/15 06/09/16 History Trazodone HCl [Desyrel] 100 mg PO QHS #60 tablet 04/16/16 06/09/16 Rx Albuterol Sulfate MDI [Proventil 2 puff INH Q4 PRN #1 inhaler 05/28/16 06/09/16 Rx HFA] Lorazepam [Ativan] 1 mg PO BID #60 tab 05/28/16 06/09/16 Rx POTASSIUM CHLORIDE Tablet [K-DUR 20 meq PO BIDWM #60 tab.er.prt 06/04/16 Rx 20 mEq Tablet*] Atorvastatin Calcium [Lipitor] 40 mg PO QHS 06/10/16 06/09/16 History Budesonide [Pulmicort] 0.5 mg NEB DAILY PRN 06/10/16 Unknown History Insulin Glargine [Lantus Pen] 60 units SQ QAM 06/10/16 06/09/16 History Vital Signs Temperature 98 F 06/10/16 11:36 Pulse Rate 77 06/10/16 11:36 Respiratory Rate 14 06/10/16 11:36 Blood Pressure 93/63 L 06/10/16 11:36 Pulse Oxygen Saturation 97 06/10/16 11:36 - Anesthetic Plan Anesthesia Type: Spinal ASA Class: 4 (High risk pt due to multiple co-morbidities/recent CHF/Troponin neg X2/Discussed w Dr Aguilar) -: I have examined this patient and reviewed the medical record. The patient has been assessed prior to anesthesia. Risks and benefits of anesthesia and anesthetic technique options have been discussed and all questions answered. The patient accepts the risk and desires me to proceed with the planned anesthetic.
--- NOTE | 2016-06-10 11:51 | PCM.CARDCO ---
Consultation Date: 06/10/16 Requesting Physician: Christa Christian (ischemic CM, sepideh-op hip fx) Consulting Doctor: Bi Aguilar Travel Outside of [place] in the Last 3 Months?: No Consultation Note: History of Present Illness: Pt is a 65 yo WM followed by my partner Dr. Everett for ASHD. Cath in 2014 ( most recent I could find) showed chronic occlusion of LAD with some collateral, minor non- occlusive disease elsewhere, and echos then showed markedly depressed LV function. He is s/p defib implant. Outpt f/u has been current. He had recent adm for decomp of chronic sys/coronado CHF, but was doing OK until he fill yesterday sustaining a lower cervical or inter-trochanteric fx of right hip. He went to surgery from ER today (pt is interviewed/examined on floor post- op). No recent anginal sx, orthopnea, PND, subjective palpitations, syncope, defib shocks. Past Medical History: ASHD, prior [place], ischemic CM, chronic hep C, cirrhosis with GI bleeds, therefore no anticoagulation for chronic afib Past Surgical History: Defibrillator implant Allergies amitriptyline HCl [From Elavil] Allergy (Verified 06/10/16 08:10) Nausea/Vomiting indomethacin Allergy (Verified 06/10/16 08:10) Nausea/Vomiting blood thinners Allergy (Uncoded 06/10/16 08:46) See Comments states "I will bleed to " Home Medications Aspirin [Johnathon Aspirin] 325 mg PO DAILY 03/19/13 Furosemide [Lasix] 80 mg PO BID 03/19/13 Lisinopril [Prinivil] 20 mg PO DAILY 03/19/13 Budesonide/Formoterol Fumarate [Symbicort 80-4.5 Mcg Inhaler] 2 puff INH BID PRN 04/30/15 Carvedilol [Coreg] 3.125 mg PO DAILY 08/16/15 Glipizide Xl [Glucotrol Xl] 10 mg PO QAM 08/16/15 Amiodarone HCl [Pacerone] 100 mg PO BID 11/06/15 Trazodone HCl [Desyrel] 100 mg PO QHS #60 tablet 04/16/16 Albuterol Sulfate MDI [Proventil HFA] 2 puff INH Q4 PRN #1 inhaler 05/28/16 Lorazepam [Ativan] 1 mg PO BID #60 tab 05/28/16 POTASSIUM CHLORIDE Tablet [K-DUR 20 mEq Tablet*] 20 meq PO BIDWM #60 tab.er.prt 06/04/16 Atorvastatin Calcium [Lipitor] 40 mg PO QHS 06/10/16 Budesonide [Pulmicort] 0.5 mg NEB DAILY PRN 06/10/16 Insulin Glargine [Lantus Pen] 60 units SQ QAM 06/10/16 Family History: non-contributory Social History: Traveled outside the [place] in the last 3 months? No Light tobacco smoker (less than 5/day) Review of Systems: Nothing in addition. chronic dysesthesia/instability rt foot b/o Charcot joint, . No TIA/CVA sx, melena Physical Examination: Temperature: 98 F (06/10/16 11:36)HR: 77 (06/10/16 11:36)RR: 14 (06/10/16 11:36 )BP: 93/63 (06/10/16 11:36) SAT:97 (06/10/16 11:36) [] Physical Exam GEN: age appropriate, in NAD VS: as above HEENT: no JVD CHEST: clear; generator site stable COR: RR, occas premature, Gr 1/6 ALBINO, no s3. ABD: no distention EXTREM: Charcot changes right ankle. No edema SKIN: warm, dry NEURO: alert, responsive post-op, no focal motor deficit LAB/DI: [] Laboratory Tests 06/10/16 06/10/16 08:10 08:10 WBC 10.9 H Hgb 18.1 H D Hct 53.7 H Plt Count 167 Sodium 139 Potassium 4.8 Chloride 104 Carbon Dioxide 26 BUN 49 H Creatinine 1.80 H Estimated GFR (MDRD) 38 L Total Bilirubin 1.5 H AST 32 ALT 34 Alkaline Phosphatase 176 H Creatine Kinase 73 Troponin I < 0.01 Laboratory Tests 06/10/16 11:36 Ady-N-[id number] Pept 2720 H EKG: afib, electronic ventricular pacing, occas PVCs tele: NSR, occasional ventricular pacing pelvic films: rt femoral fracture - impacted IMPRESSION: stable cardiac status - known ASHD, chr combined sys/coronado CHF is clinically compensated - Recommendations REC: d/w anesthesia earlier today - agreed with decision to proceed with expeditious hip replacement will adjust diuretic dosing based on weights, I&O, BMP and BNP determinations
--- NOTE | 2016-06-10 12:29 | PCM.ORTHCO ---
Consultation Date: 06/10/16 Reason for Consult: Fracture (right hip) - History of Present Illness Mr. King is a 65 year old male with history of Charcot foot on the right who presented to the ED today with right hip pain and inability to bear weight on the RLE after a fall down several stairs from his deck at home. He ambulates with a cane primarily and lives alone. He was forced to crawl to a phone to call for help. He was diagnosed with a right hip fracture while in the ED and has been admitted for surgical treatment. He has a history of CHF and COPD and was recently treated for an exacerbation. He is not anticoagulated due to bleeding concerns/issues in the past. PMH consistent with IDDM and hypercholesterolemia as well. No current SOB, chest pain, or N/V. He denies head injury of LOC during his fall. Patient has long standing decreased sensation in his RLE and this is without change following his injury. No other concerns at this time. Chief Complaint: pain in hip - Past Medical and Surgical History Cardiac History: Reports: Hypertension, Congestive Heart Failure (Recent hospitalization/compensated/EF 20-25%), Heart Attack, Cardiac Catheterization ( three months ago), Pacemaker Respiratory History: Reports: COPD, Emphysema GI/ History: Reports: Renal Disease (CKD-3) Systemic History: Denies: Anemia Psychological History: Reports: Anxiety. Denies: Depression, Alcoholism, Substance Use Disorder Neurological History: Denies: Cerebrovascular Accident, Seizures Past Surgical History: Reports: Cardiac Catheterization (three months ago), Other (PACEMAKER, ABLATION, surgery to R foot I&D) Allergies amitriptyline HCl [From Elavil] Allergy (Verified 06/10/16 08:10) Nausea/Vomiting indomethacin Allergy (Verified 06/10/16 08:10) Nausea/Vomiting blood thinners Allergy (Uncoded 06/10/16 08:46) See Comments states "I will bleed to " Home Medications Aspirin [Johnathon Aspirin] 325 mg PO DAILY 03/19/13 Furosemide [Lasix] 80 mg PO BID 03/19/13 Lisinopril [Prinivil] 20 mg PO DAILY 03/19/13 Budesonide/Formoterol Fumarate [Symbicort 80-4.5 Mcg Inhaler] 2 puff INH BID PRN 04/30/15 Carvedilol [Coreg] 3.125 mg PO DAILY 08/16/15 Glipizide Xl [Glucotrol Xl] 10 mg PO QAM 08/16/15 Amiodarone HCl [Pacerone] 100 mg PO BID 11/06/15 Trazodone HCl [Desyrel] 100 mg PO QHS #60 tablet 04/16/16 Albuterol Sulfate MDI [Proventil HFA] 2 puff INH Q4 PRN #1 inhaler 05/28/16 Lorazepam [Ativan] 1 mg PO BID #60 tab 05/28/16 POTASSIUM CHLORIDE Tablet [K-DUR 20 mEq Tablet*] 20 meq PO BIDWM #60 tab.er.prt 06/04/16 Atorvastatin Calcium [Lipitor] 40 mg PO QHS 06/10/16 Budesonide [Pulmicort] 0.5 mg NEB DAILY PRN 06/10/16 Insulin Glargine [Lantus Pen] 60 units SQ QAM 06/10/16 - Social History Smoking Status: Light tobacco smoker (less than 5/day) Social History: Denies: Alcohol Use, Substance Use Disorder - Family History Reports: Hypertension (dad), Diabetes (sister), Cancer (cannot remember), Cardiac Disorders. Denies: Stroke - Review of Systems Constitutional: negative: Chills, Fever Respiratory: negative: Cough, Shortness of Breath Cardiovascular: negative: Chest Pain Gastrointestinal: negative: Nausea, Vomiting Neurological: Numbness (RLE without change) Musculoskeletal:: Joint Pain, Joint Swelling - Physical Exam Vital Signs: Initial Vitals Temperature 98.2 F 06/10/16 08:05 Pulse Rate 77 06/10/16 08:05 Respiratory Rate 20 06/10/16 08:05 Blood Pressure 128/100 06/10/16 08:05 Pulse Oxygen Saturation 95 06/10/16 08:05 Last Vital Signs Temp 98 F 06/10/16 11:36 Pulse 75 06/10/16 11:48 Resp 16 06/10/16 11:48 BP 93/63 L 06/10/16 11:48 Pulse Ox 97 06/10/16 11:48 Constitutional: No apparent distress, Alert Oriented to: Time, Person, Place - HEENT Head: Normal - Musculoskeletal Extremities: Pedal Pulse, Other (RLE is shortened and externally rotated. Minimal tenderness to palpation about the hip. Plantarflexion and dorsiflexion intact although limited (from Charcot foot). Able to move toes freely. Sensation is intact but severely diminished in RLE. This is without change per patient.). negative: Calf Tenderness - Neurologic Memory Impaired: Normal Motor Function: Normal Cerebellar: Normal Mood Description: Anxious Thought: Coherent Perception: Normal - Lab Results 06/10/16 08:10 06/10/16 08:10 - Diagnostic Findings Exam(s): [id number] RAD/DG HIP COMPLETE 2+V-BILAT CLINICAL DATA: Slip and fall on porch with right hip pain, initial encounter EXAM: BILATERAL HIP (WITH PELVIS) 3-4 VIEWS COMPARISON: None. FINDINGS: There is a fracture in the proximal right femur at the base of the femoral neck with impaction and angulation at the fracture site. It appears to extend into the intertrochanteric region as well. The pelvic ring is intact. No other focal abnormality is seen. IMPRESSION: Proximal right femoral fracture Electronically Signed By: Pedro Diana M.D. On: 06/10/2016 09:14 Exam(s): [id number] CT/CT EXTREM LOW W/O CM-R CLINICAL DATA: Right hip pain status post fall. EXAM: CT OF THE LOWER RIGHT EXTREMITY WITHOUT CONTRAST TECHNIQUE: Multidetector CT imaging of the right was performed according to the standard protocol. COMPARISON: None. FINDINGS: Fracture involving the base of the femoral neck with comminution of the right greater trochanter. Small fracture cleft extending to the superior most aspect of the lesser trochanter, but a majority of the fracture is involving the base of the femoral neck. No right hip dislocation. No aggressive lytic or sclerotic osseous lesion. Intact superior and inferior right pubic rami. No focal fluid collection or hematoma. Normal musculature. Peripheral vascular atherosclerotic disease. IMPRESSION: Fracture involving the base of the femoral neck with comminution of the right greater trochanter. Small fracture cleft extending to the superior most aspect of the lesser trochanter, but a majority of the fracture is involving the base of the femoral neck. Electronically Signed By: Luma Ayala On: 06/10/2016 10:17 Electronically Signed By: Luma Ayala MD Electronically Signed Date/Time: 020 Dictate Date/Time: 06/10/16 1012 Technologist: Cate Montesinos Transcribed By: Santos Transcribed Date/Time: 06/10/16 1017 - Assessment/Plan (1) Intertrochanteric fracture of right femur S72.141A - DISPLACED INTERTROCHANTERIC FRACTURE OF RIGHT FEMUR, INIT Acute initial encounter closed S72.141A - Displaced intertrochanteric fracture of right femur, initial encounter for closed fracture Case Care Discussed with: Patient Plan: Risks and benefits of surgery discussed with patient. Risks include but not limited to infection, blood clot, risks of anesthesia, damage to blood vessels and nerves, need for further surgery. Agrees to proceed. Consent obtained. Plan for ORIF right femur/IM martin today. Continue pain management
[2016-06-10] MEDS ORDERED: Cefazolin 2gm/50 ml D5W 2 GM/50 ML RTU IV ONE ×2 (13:00→15:00)
[2016-06-10] MEDS ORDERED: BUPIVACAINE 0.5% 30 ML VIAL ONE (13:52)
[2016-06-10] MEDS ORDERED: CEFAZOLIN 1 GM VIAL ONE (14:38)
[2016-06-10] MEDS: ALBUTEROL 0.083% 3 ML NEB NEB SCH ×2 (14:55→20:43)
--- NOTE | 2016-06-10 15:49 | HIMOPRPT ---
DATE OF PROCEDURE: 06/10/16 PREOPERATIVE DIAGNOSIS: Right hip intertrochanteric fracture. POSTOPERATIVE DIAGNOSIS: Right hip intertrochanteric fracture. PROCEDURE PERFORMED: Right hip gamma nail, hip intramedullary nail. SURGEON: Johnathan Espinal MD. DRAPERY SEAMSTRESS: RANULFO Segura ANESTHESIA: General endotracheal Anesthesia. IV FLUIDS: Crystalloids ESTIMATED BLOOD LOSS: 150 ml SPECIMENS: none. COMPLICATIONS: None. IMPLANTS: Synthetic Substitute Metal [place] gamma 3 nail 13 x 400 millimeters long, proximal locking screw 110 millimeters long BRIEF HISTORY: SANCHEZ OVALLE is a 65 year-old M patient. Patient fell off a deck almost 6 feet height and sustained a right hip comminuted intertrochanteric fracture. Patient had significant comorbidities with ejection fraction up to 25%. Patient had preoperative cardiology consult and was cleared for surgery has a high risk. I had a detailed discussion with the family. Based on the nature of the fracture, intramedullary nailing was recommended for right hip intertrochanteric fracture. Informed consent was obtained from the patient. The patient understood that the risks involved in surgery include infection, damage to the nerve, blood vessel, need for further surgery, implant failure, continued pain, DVT, pulmonary embolism, stroke, and even . The patient was seen on the day of surgery in the preop holding area. Surgical site was marked. The patient was then wheeled back into the operating room. DESCRIPTION OF THE PROCEDURE: Proper time-out was performed. 2 grams of IV Ancef were given. The patient was given proper anesthesia. Right lower extremity was placed in traction and left lower extremity was placed in well- leg abdul. The right lower extremity was prepped and draped. We started with an incision proximal to the greater trochanter. AP and lateral C-arm images were used. Entrance was created using a curved bone awl. We then inserted a guidewire across the fracture site into the distal fragment. The femur was then reamed. We reamed up to 14.5 millimeter diameter reamer. We then measured the size of the nail as 13 x 400 mm millimeters long nail. We then procured if 13 x 400 millimeters gamma 2 nail and this was inserted in an antegrade fashion. This nail was 125 degrees neck shaft angle. We then drilled for the proximal lag screw. The length of the lag screw was measured at 110 millimeters. We then inserted a 110-millimeter long lag screw proximally. The nail was locked in place. We then placed a distal static lock through the distal part of the nail using freehand technique. Final AP and lateral x-rays were obtained. The wound was copiously irrigated with normal saline and closed in layers. The patient tolerated the procedure very well and was taken to the recovery room in stable condition. DISPOSITION: Patient will be weight-bearing as tolerated on his right lower extremity. The patient would also be started on [Aspirin 325mg Bid] .
[2016-06-10] MEDS ORDERED: DIPHENHYDRAMINE 25 MG CAP PO PRN (16:10)
[2016-06-10] MEDS ORDERED: OXYCODONE HCL 5 MG TABLET PO PRN (16:10)
[2016-06-10] MEDS ORDERED: DIPHENHYDRAMINE 50 MG/ML VIAL IV PRN (16:10)
[2016-06-10] MEDS ORDERED: NALOXONE 0.4 MG/ML AMPULE IV SCH (17:00)
[2016-06-10] MEDS: HYDROmorphone 1 MG INJECTION IV PRN ×2 (17:39→22:39)
[2016-06-10] MEDS: AMIODARONE 200 MG TAB PO SCH ×2 (17:44→20:18)
[2016-06-10] MEDS: REGULAR INSULIN 100 UNITS/ML - 3 ML VIAL SQ SCH ×3 (17:45→20:20)
[2016-06-10] MEDS: POTASSIUM CHLORIDE 20 MEQ TAB PO SCH ×2 (17:45→17:47)
[2016-06-10] MEDS: CARVEDILOL 3.125 MG TAB PO SCH (17:45)
[2016-06-10] MEDS: LISINOPRIL 20 MG TAB PO SCH (17:45)
[2016-06-10] MEDS: GLARGINE INSULIN (LANTUS) 100 UNITS/ML PEN SQ SCH (17:45)
[2016-06-10] MEDS: FUROSEMIDE 80 MG TAB PO SCH ×2 (17:45→17:46)
[2016-06-10] MEDS: CALCIUM CARBONATE + VITAMIN D 500 MG TAB PO SCH (17:47)
[2016-06-10] MEDS: Aspirin (Orange Enteric Coated) 325 mg tab PO SCH (17:47)
[2016-06-10] MEDS ORDERED: Vaccine Screening Complete SCH (18:00)
[2016-06-10] MEDS: SODIUM CHLORIDE 0.9% 3 ML FLUSH FLUSH SCH (18:31)
[2016-06-10] MEDS: Cefazolin 2gm/50 ml D5W 2 GM/50 ML RTU IV SCH (20:17)
[2016-06-10] MEDS: TRAZODONE 50 MG TAB PO SCH (20:18)
[2016-06-10] MEDS: LORAZEPAM 1 MG TAB PO SCH (20:18)
[2016-06-10] MEDS: ATORVASTATIN 40 MG TAB PO SCH (20:19)
[2016-06-10] MEDS: BUDESONIDE 0.5 MG NEB NEB SCH (20:50)
[2016-06-10] MEDS ORDERED: AMIODARONE HCL 100 MG PO SCH (21:00)
[2016-06-11] MEDS: ALBUTEROL 0.083% 3 ML NEB NEB SCH ×4 (03:05→19:28)
[2016-06-11] MEDS: Cefazolin 2gm/50 ml D5W 2 GM/50 ML RTU IV SCH ×2 (04:04→12:00)
[2016-06-11] MEDS: SODIUM CHLORIDE 0.9% 3 ML FLUSH FLUSH SCH ×2 (04:04→15:49)
[2016-06-11 04:26] LABS: MPV 8.5 fL (7.4-10.4)
[2016-06-11 04:32] LABS: BLOOD UREA NITROGEN 45 MG/DL (9-20); CALCIUM 8.6 MG/DL (8.4-10.2); CALCULATED OSMOLALITY 282 MOs/Kg (270-290); CHLORIDE 104 mEq/L (98-107); GLUCOSE 199 mg/dL (70-99); SODIUM LEVEL 137 mEq/L (137-146)
[2016-06-11] MEDS: REGULAR INSULIN 100 UNITS/ML - 3 ML VIAL SQ SCH ×4 (06:00→22:06)
[2016-06-11] MEDS: HYDROmorphone 1 MG INJECTION IV PRN (06:00)
--- NOTE | 2016-06-11 07:38 | PCM.ORTHBL ---
- Subjective Post Op Day: 1 Daily Assessment - Patient: Reports: No new complaints, Awake Alert Oriented x4 , Feels better, Still having pain, Pain is less, Voiding without difficulty, Afebrile, Other (denies chest pain). Denies: Ambulating with Physical Therapist (to begin today), Shortness of breath, Nausea, Vomiting - Objective / Physical Exam Vital Signs: Temperature: 97.8 F (06/11/16 04:00) HR: 75 (06/11/16 06:02)RR: 20 (06/11/16 04: 00) BP: 90/54 (06/11/16 04:00)Pulse Ox: 96 (06/11/16 04:00) General: Alert, Oriented x3, Cooperative, No acute distress, Well appearing, Other (patient standing to urinate with nursing prior to entry) Musculoskeletal / Extremities: 2 plus Dorsalis Pedis Pulse, Dressing Clean/Dry/ Intact. negative: Tenderness (no calf tenderness) Neurological: Positive Sensation First Dorsal Web Space, Sensation to light touch intact (sensation diminished but intact. No change from prior to injury) , Extensor Hallicus Longus Intact, Flexor Hallicus Longus Intact, Dorsiflexion Intact, Plantarflexion Intact (Plantarflexion and dorsiflexion are diminished given his Charcot foot, this is without change from prior to surgery per patient ) Laboratory/Diagnostics Reviewed: 06/11/16 04:12 06/11/16 04:12 - Assessment and Plan (1) Intertrochanteric fracture of right femur Acute S72.141A - DISPLACED INTERTROCHANTERIC FRACTURE OF RIGHT FEMUR, INIT Present on Admission: Yes initial encounter closed S72.141A - Displaced intertrochanteric fracture of right femur, initial encounter for closed fracture Plan: POD#1 s/p IM nail right hip PT/OT/WBAT TEDS/SCDS/ECASA 325mg BID for 30 days post-op for DVT prophylaxis Continue pain management D/C planning.
[2016-06-11] MEDS: Aspirin (Orange Enteric Coated) 325 mg tab PO SCH ×2 (07:54→15:49)
[2016-06-11] MEDS: LORAZEPAM 1 MG TAB PO SCH ×2 (07:54→22:04)
[2016-06-11] MEDS: FUROSEMIDE 80 MG TAB PO SCH ×2 (07:55→15:49)
[2016-06-11] MEDS: LISINOPRIL 20 MG TAB PO SCH (07:55)
[2016-06-11] MEDS: POTASSIUM CHLORIDE 20 MEQ TAB PO SCH ×2 (07:55→15:50)
[2016-06-11] MEDS: AMIODARONE 200 MG TAB PO SCH ×2 (07:55→22:04)
[2016-06-11] MEDS: CALCIUM CARBONATE + VITAMIN D 500 MG TAB PO SCH ×2 (07:55→15:50)
[2016-06-11] MEDS: GLARGINE INSULIN (LANTUS) 100 UNITS/ML PEN SQ SCH (07:56)
[2016-06-11] MEDS: CARVEDILOL 3.125 MG TAB PO SCH (07:56)
[2016-06-11] MEDS: NS 1,000 ML IV SCH (07:57)
[2016-06-11] MEDS: BUDESONIDE 0.5 MG NEB NEB SCH ×2 (08:45→19:29)
[2016-06-11] MEDS ORDERED: FUROSEMIDE 40 MG/4 ML VIAL IV ONE (10:00)
[2016-06-11] MEDS: OXYCODONE HCL 5 MG TABLET PO PRN ×2 (10:23→19:00)
--- NOTE | 2016-06-11 14:53 | GENMEDPROG ---
Chief Complaint: intertrochanteric fx of R femur, CHF, cardiomyopathy of 20-25% EF, atrial fib, DM-2, COPD Subjective Note: s/p intramedullary nailing of fracture. Notes Reviewed: Yes: Events from last night noted and discussed with Clinical Staff Current Medication List: Reviewed Currently: Reports: HASKINS, SOB, Tobacco Use/Hx, Alcohol Hx (none recently), Jean Claude PT /OT. Denies: Cough, Wheezing, Ambulating DVT Prophylaxis: Yes (aspirin) - Physical Examination Vital Signs and I&O: Last Vital Signs Temp 98 F 06/11/16 12:11 Pulse 80 06/11/16 14:00 Resp 14 06/11/16 12:11 BP 93/63 L 06/11/16 12:11 Pulse Ox 97 06/11/16 12:11 Oxygen Pulse Oxygen Saturation 97 O2 Device Room Air Oxygen Flow Rate 3 Fraction of Inspired Oxygen ( FIO2) Intake & Output 06/08/16 06/09/16 06/10/16 06/11/16 23:59 23:59 23:59 23:59 Intake Total 290 799 Output Total 950 900 Balance -660 -101 Patient's weight 100.607 kg 99.745 kg General: Alert, Oriented x3, Cooperative, No acute distress, Well appearing, Other (patient standing to urinate with nursing prior to entry) HEENT: Normal, PERRLA, EOMI, Anicteric Sclera, Mucous membr. moist/pink Neck: Full range of motion, Normal Trachea alignment, Normal inspection, No Masses palpable, No Thyromegaly palpable, Trachea deviation, JVD Lymphatics: Normal Respiratory: Normal - CTA, Accessory Muscle Use Cardiovascular: Regular rate and rhythm, Normal S1, Normal S2 GI: Normal bowel sounds, Soft, Non tender, No hepatospenomegaly, No masses Extremities/Musculoskeletal: Normal pulses, DJD, FROM, Other (Charcot foot R) Skin: Warm,Dry and Intact, No rashes, No breakdown Neurological: Normal speech, Strength at 5/5 X4 ext, Normal tone Psych/Mental Status: Appropriate, Normal Affect, Cooperative Lab/DI/Studies Reviewed: Laboratory Tests 06/10/16 06/11/16 06/11/16 08:10 04:12 04:12 WBC 18.5 H Hgb 15.3 D Hct 44.7 Plt Count 130 Sodium 137 Potassium 5.5 H Chloride 104 Carbon Dioxide 25 Anion Gap 14 BUN 45 H Creatinine 1.70 H Estimated GFR (MDRD) 40 L Glucose 199 H POC Capillary Glucose Calculated Osmolality 282 Calcium 8.6 Vitamin D 25-Hydroxy 11.5 L 06/11/16 05:49 WBC Hgb Hct Plt Count Sodium Potassium Chloride Carbon Dioxide Anion Gap BUN Creatinine Estimated GFR (MDRD) Glucose POC Capillary Glucose 197 H Calculated Osmolality Calcium Vitamin D 25-Hydroxy - Assessment (1) Intertrochanteric fracture of right femur Acute S72.141A - DISPLACED INTERTROCHANTERIC FRACTURE OF RIGHT FEMUR, INIT Qualifiers: Encounter type: initial encounter Fracture type: closed Qualified Code(s) : S72.141A - Displaced intertrochanteric fracture of right femur, initial encounter for closed fracture Comment/Plan: Consulted Dr. Espinal of the orthopedic service for repair of the hip fracture. His hip was repaired yesterday by intramedullary nailing. Patient is complaining of pain, but states "it is not too bad." (2) Systolic congestive heart failure with reduced left ventricular function, NYHA class 1 Chronic I50.20 - UNSPECIFIED SYSTOLIC (CONGESTIVE) HEART FAILURE Comment/ Plan: EF=25% No sign of acute decompensation. Denies shortness of breath or chest pain at this time. (3) Cardiomyopathy Chronic I42.9 - CARDIOMYOPATHY, UNSPECIFIED Qualifiers: Cardiomyopathy type: dilated Qualified Code(s): I42.0 - Dilated cardiomyopathy Comment/Plan: EF =20-25% Patient with history of HCVD & DM-2, recently discharged from hospital. No anticoagulation. Using Aspirin for DVT prophylaxis. (4) Atrial fibrillation Chronic I48.91 - UNSPECIFIED ATRIAL FIBRILLATION Qualifiers: Atrial fibrillation type: chronic Qualified Code(s): I48.2 - Chronic atrial fibrillation Comment/Plan: Not anticoagulated, just takes aspirin, due to prior history for bleeding complications. (5) CKD (chronic kidney disease) Chronic N18.9 - CHRONIC KIDNEY DISEASE, UNSPECIFIED Qualifiers: Chronic kidney disease stage: stage 3 (moderate) Qualified Code(s): N18.3 - Chronic kidney disease, stage 3 (moderate) Comment/Plan: Likely related to his uncontrolled diabetes. Renal function stable at this time. Avoid nephrotoxic agents, hold his Lasix and HARISH- inhibitor until after surgery. Then resume. (6) DMII (diabetes mellitus, type 2) Chronic E11.9 - TYPE 2 DIABETES MELLITUS WITHOUT COMPLICATIONS Qualifiers: Diabetes mellitus complication status: with kidney complications Diabetes mellitus complication detail: with chronic kidney disease Diabetes mellitus oil heaterman insulin use: with oil heaterman use Chronic kidney disease stage: stage 3 (moderate) Qualified Code(s): E11.22 - Type 2 diabetes mellitus with diabetic chronic kidney disease; N18.3 - Chronic kidney disease, stage 3 ( moderate); Z79.4 - [facility] (current) use of insulin Comment/Plan: Hg A1c=8.4 during last admission, Continue Lantus, use SSI. Monitor FSBS ACHS, monitor very closely. Need to get sugars under control, for better wound healing. (7) COPD (chronic obstructive pulmonary disease) Chronic J44.9 - CHRONIC OBSTRUCTIVE PULMONARY DISEASE, UNSPECIFIED Qualifiers: COPD type: emphysema Emphysema type: unspecified Qualified Code(s): J43.9 - Emphysema, unspecified Comment/Plan: Will treat with Duonebs PRN and oxygen. Continue home inhalers. (8) Charcot foot due to diabetes mellitus Chronic E11.610 - TYPE 2 DIABETES MELLITUS W DIABETIC NEUROPATHIC ARTHROPATHY Comment/Plan: affecting gait. Will make PT aware prior to rehab. Case Care Discussed with: Patient, Family, Nursing Staff Education/Counseling Given To: Patient, Family Member Education/Counseling Given Regarding: Diagnosis, Treatment, Prognosis Critical Care: No Couseling Time (>50% in counseling/coordination): No Code: 32316 (12+)
--- NOTE | 2016-06-11 20:02 | PCM.CARD ---
- Subjective Reason for visit: f/u ischemic CM, sepideh-op cardiac management Subj: noted polyuria post IV lasix dose this am. Hip pain with movement No chest pain. "Breathing fine". Vital Signs: Last Vital Signs Temp 98.4 F 06/11/16 19:53 Pulse 84 06/11/16 19:53 Resp 20 06/11/16 19:53 BP 113/76 06/11/16 19:53 Pulse Ox 96 06/11/16 19:53 Intake & Output 06/08/16 06/09/16 06/10/16 06/11/16 23:59 23:59 23:59 23:59 Intake Total 290 1242 Output Total 950 1300 Balance -660 -58 Patient's weight 100.607 kg 99.745 kg PE: Physical Exam GEN: Age appropriate, NAD; using CPAP VS: as above HEENT: no JVD CHEST: clear COR: RR, occas premature. No s3. Gr 1/6 mid-systolic murmur ABD: soft, non-tender EXTREM: no edema SKIN: warm, dry NEURO: alert, no focal deficit Lab/DI Results Reviewed: Laboratory Tests 06/11/16 06/11/16 04:12 04:12 WBC 18.5 H Hgb 15.3 D Hct 44.7 Sodium 137 Potassium 5.5 H Chloride 104 Carbon Dioxide 25 BUN 45 H Creatinine 1.70 H EKG this AM: prob afib, electronic ventricular pacing, occasional PVCs, minor non-specific ST-T changes, as before tele: eletronic pacing, prob afib, occas PVCs, no V tach IMPRESSION: stable cardiovascular status post-op hip fixation - Plan PLAN: recheck BMP, BNP monday hold potassium tomorrow for K+ 5.5 today
[2016-06-11] MEDS: TEMAZEPAM 15 MG CAP PO PRN (22:04)
[2016-06-11] MEDS: TRAZODONE 50 MG TAB PO SCH (22:04)
[2016-06-11] MEDS: ATORVASTATIN 40 MG TAB PO SCH (22:05)
[2016-06-12] MEDS: ALBUTEROL 0.083% 3 ML NEB NEB SCH ×3 (01:33→14:24)
[2016-06-12] MEDS: REGULAR INSULIN 100 UNITS/ML - 3 ML VIAL SQ SCH ×5 (05:43→21:40)
[2016-06-12] MEDS: SODIUM CHLORIDE 0.9% 3 ML FLUSH FLUSH SCH ×2 (06:55→16:23)
[2016-06-12] MEDS: BUDESONIDE 0.5 MG NEB NEB SCH (07:30)
[2016-06-12] MEDS: CARVEDILOL 3.125 MG TAB PO SCH (07:46)
[2016-06-12] MEDS: FUROSEMIDE 80 MG TAB PO SCH ×2 (07:46→15:59)
[2016-06-12] MEDS: AMIODARONE 200 MG TAB PO SCH ×2 (07:47→21:38)
[2016-06-12] MEDS: Aspirin (Orange Enteric Coated) 325 mg tab PO SCH ×2 (07:47→16:24)
[2016-06-12] MEDS: CALCIUM CARBONATE + VITAMIN D 500 MG TAB PO SCH ×2 (07:47→16:24)
[2016-06-12] MEDS: LORAZEPAM 1 MG TAB PO SCH ×2 (07:47→21:37)
[2016-06-12] MEDS: GLARGINE INSULIN (LANTUS) 100 UNITS/ML PEN SQ SCH (07:48)
[2016-06-12] MEDS: NS 1,000 ML IV SCH (07:50)
--- NOTE | 2016-06-12 07:51 | PCM.ORTHBL ---
- Subjective Post Op Day: 2 Daily Assessment - Patient: Reports: No new complaints, Awake Alert Oriented x4 , Feels better (states he feels "a little better" today), Pain is less (No significant pain at rest, although it did limit him with WB yesterday with PT), Tolerating Regular Diet, Voiding without difficulty, Afebrile, Ambulating with Physical Therapist (limited secondary to pain with WB), Other (denies chest pain ). Denies: Shortness of breath, Nausea, Vomiting - Objective / Physical Exam Vital Signs: Temperature: 97.4 F (06/12/16 07:48) HR: 74 (06/12/16 07:48)RR: 20 (06/12/16 07: 48) BP: 97/66 (06/12/16 07:48)Pulse Ox: 96 (06/12/16 07:48) General: Alert, Oriented x3, Cooperative, No acute distress, Well appearing Musculoskeletal / Extremities: 2 plus Dorsalis Pedis Pulse, Dressing Clean/Dry/ Intact. negative: Tenderness (no calf tenderness) Neurological: Positive Sensation First Dorsal Web Space, Sensation to light touch intact (diminished but intact, no change from prior to injury), Extensor Hallicus Longus Intact, Flexor Hallicus Longus Intact, Dorsiflexion Intact, Plantarflexion Intact (intact but limited plantar and dorsiflexion, however no change from prior to injury) - Assessment and Plan (1) Intertrochanteric fracture of right femur Acute S72.141A - DISPLACED INTERTROCHANTERIC FRACTURE OF RIGHT FEMUR, INIT Present on Admission: Yes initial encounter closed S72.141A - Displaced intertrochanteric fracture of right femur, initial encounter for closed fracture Plan: POD#2 s/p IM nail right hip PT/OT/WBAT TEDS/SCDS/ECASA 325mg BID for 30 days post-op for DVT prophylaxis Continue pain management D/C planning, will likely require SNF
[2016-06-12] MEDS: OXYCODONE HCL 5 MG TABLET PO PRN ×2 (10:46→17:45)
--- NOTE | 2016-06-12 10:55 | PCM.CARD ---
- Subjective Reason for visit: f/u ischemic CM, chr sys/[place] CHF, post op hip fx. Subj: ambulation with walker has been difficult, feels left leg weak No chest discomfort, dyspnea, lightheadedness Vital Signs: Last Vital Signs Temp 97.4 F L 06/12/16 07:48 Pulse 74 06/12/16 08:00 Resp 20 06/12/16 07:48 BP 97/66 L 06/12/16 07:48 Pulse Ox 96 06/12/16 07:48 PE: Physical Exam GEN: appears well, raffi OOB ok VS: as above HEENT: no JVD CHEST: clear COR: RR, ho s3 ABD: no distention EXTREM: no edema SKIN: warm,dry NEURO: alert, speech normal Lab/DI Results Reviewed: No new labs; will repeat BMP, BNP in AM for Dr. Everett's review tele: afib, ventricular demand pacing, occas PVCs, no V TAch - Plan PLAN: stable from cardiovas status Pt's rehab/PT from hip fx may be more involved than usual
--- NOTE | 2016-06-12 13:25 | CAPUEKG ---
[place], [place] Test Date: 2016-06-11 Pat Name: SANCHEZ OVALLE Department: Room: 445 Gender: Male Supervisor Chemical: : Requested By: Order Number: Reading MD: Bi Aguilar Measurements Intervals [place] Rate: 76 P: NH: QRS: -85 QRSD: 160 T: 98 QT: 460 QTc: 517 Interpretive Statements atrial fibrillation with demand ventricular pacing, PVCs. T wave abnormality, non-specific No change from prior tracing.pre-op Abnormal ECG Electronically Signed On 06-12-16 13:24:46 EST by Bi Aguilar <[email or web address] [id number]
[2016-06-12] MEDS ORDERED: Albuterol/Ipratropium Neb 3 ML NEB NEB PRN (14:59)
[2016-06-12] MEDS ORDERED: ALBUTEROL 0.083% 3 ML NEB NEB PRN (15:07)
[2016-06-12] MEDS ORDERED: DEXTROSE 25 GM/50 ML PFS IV PRN (16:24)
[2016-06-12] MEDS ORDERED: GLUCAGON 1 MG VIAL SQ PRN (16:24)
[2016-06-12] MEDS ORDERED: GLUCOSE (ORAL GEL) 15 GM TUBE PO PRN (16:24)
--- NOTE | 2016-06-12 16:26 | GENMEDPROG ---
Chief Complaint: R hip fracture, cardiomyopathy w/ 20-25% EF, CHF (sys) chr, atrial fib- rate controlled, tobacco abuse, DM-2 Currently: Reports: HASKINS, SOB, Tobacco Use/Hx, Alcohol Hx (none recently), Jean Claude PT /OT. Denies: Cough, Wheezing, Ambulating DVT Prophylaxis: Yes (aspirin) - Physical Examination Vital Signs and I&O: Last Vital Signs Temp 96.8 F L 06/12/16 11:28 Pulse 73 06/12/16 16:03 Resp 20 06/12/16 16:03 BP 90/42 L 06/12/16 16:03 Pulse Ox 94 06/12/16 16:03 Oxygen Pulse Oxygen Saturation 94 O2 Device Room Air Oxygen Flow Rate 3 Fraction of Inspired Oxygen ( FIO2) Intake & Output 06/09/16 06/10/16 06/11/16 06/12/16 23:59 23:59 23:59 23:59 Intake Total 290 1242 818 Output Total 950 1500 1425 Balance -338 -416 -870 Patient's weight 100.607 kg 99.745 kg 100.062 kg General: Alert, Oriented x3, Cooperative, No acute distress, Well appearing HEENT: PERRLA, EOMI, Anicteric Sclera, Mucous membr. moist/pink, Other (face flushed) Neck: Full range of motion, Normal Trachea alignment, Normal inspection, No Masses palpable, Supple Lymphatics: Normal Respiratory: Normal - CTA, Diminished. negative: Rales, Wheezes Cardiovascular: Regular rate and rhythm, Normal S1, Normal S2, Good Pedal Pulses. negative: LE Edema GI: Normal bowel sounds, Soft, Non tender, No masses, Hepatomegaly Extremities/Musculoskeletal: Normal pulses, DJD Skin: Warm,Dry and Intact, No breakdown Neurological: Normal speech, Normal tone, Cranial nerves 3-12 NL Psych/Mental Status: Normal Affect, Cooperative, Agitated - Assessment (1) Intertrochanteric fracture of right femur Acute S72.141A - DISPLACED INTERTROCHANTERIC FRACTURE OF RIGHT FEMUR, INIT Qualifiers: Encounter type: initial encounter Fracture type: closed Qualified Code(s) : S72.141A - Displaced intertrochanteric fracture of right femur, initial encounter for closed fracture Comment/Plan: Consulted Dr. Espinal of the orthopedic service for repair of the hip fracture. His hip was repaired 06/10/16 by intramedullary nailing. Patient is doing well post-operatively, c/o pain, but states "it is not too bad." tolerating PT. (2) Systolic congestive heart failure with reduced left ventricular function, NYHA class 1 Chronic I50.20 - UNSPECIFIED SYSTOLIC (CONGESTIVE) HEART FAILURE Comment/ Plan: No tachycardia or chest pain. No significant edema. EF=25% No sign of acute decompensation. Denies shortness of breath or chest pain at this time. (3) Cardiomyopathy Chronic I42.9 - CARDIOMYOPATHY, UNSPECIFIED Qualifiers: Cardiomyopathy type: dilated Qualified Code(s): I42.0 - Dilated cardiomyopathy Comment/Plan: EF =20-25% Patient with history of HCVD & DM-2, recently discharged from hospital. No anticoagulation. Using Aspirin for DVT prophylaxis. (4) Atrial fibrillation Chronic I48.91 - UNSPECIFIED ATRIAL FIBRILLATION Qualifiers: Atrial fibrillation type: chronic Qualified Code(s): I48.2 - Chronic atrial fibrillation Comment/Plan: Not anticoagulated, just takes aspirin, due to prior history for bleeding complications. (5) CKD (chronic kidney disease) Chronic N18.9 - CHRONIC KIDNEY DISEASE, UNSPECIFIED Qualifiers: Chronic kidney disease stage: stage 3 (moderate) Qualified Code(s): N18.3 - Chronic kidney disease, stage 3 (moderate) Comment/Plan: Likely related to his uncontrolled diabetes. Renal function stable at this time. Avoid nephrotoxic agents, hold his Lasix and HARISH- inhibitor until after surgery. Then resume. Reduced dose of Lisinopril due to hypotension, added low dose beta-almas. (6) DMII (diabetes mellitus, type 2) Chronic E11.9 - TYPE 2 DIABETES MELLITUS WITHOUT COMPLICATIONS Qualifiers: Diabetes mellitus complication status: with kidney complications Diabetes mellitus complication detail: with chronic kidney disease Diabetes mellitus [facility] insulin use: with [facility] use Chronic kidney disease stage: stage 3 (moderate) Qualified Code(s): E11.22 - Type 2 diabetes mellitus with diabetic chronic kidney disease; N18.3 - Chronic kidney disease, stage 3 ( moderate); Z79.4 - [facility] (current) use of insulin Comment/Plan: Hg A1c=8.4 during last admission, Continue Lantus, use SSI. Monitor FSBS ACHS, monitor very closely. Need to get sugars under control, for better wound healing. (7) COPD (chronic obstructive pulmonary disease) Inactive J44.9 - CHRONIC OBSTRUCTIVE PULMONARY DISEASE, UNSPECIFIED Qualifiers: COPD type: emphysema Emphysema type: unspecified Qualified Code(s): J43.9 - Emphysema, unspecified Comment/Plan: Will treat with Duonebs PRN and oxygen. Continue home inhalers. (8) Charcot foot due to diabetes mellitus Chronic E11.610 - TYPE 2 DIABETES MELLITUS W DIABETIC NEUROPATHIC ARTHROPATHY Comment/Plan: affecting gait. Will make PT aware prior to rehab. - Plan Anticipate discharge to SNF Monday for rehabilitation. Probable transition to [facility] after that. Case Care Discussed with: Patient, Resource Management Education/Counseling Given To: Patient Education/Counseling Given Regarding: Diagnosis, Treatment, Prognosis Total Time: 35 min Critical Care: No Couseling Time (>50% in counseling/coordination): No Code: 53197 (12+)
[2016-06-12] MEDS: TEMAZEPAM 15 MG CAP PO PRN (21:37)
[2016-06-12] MEDS: TRAZODONE 50 MG TAB PO SCH (21:38)
[2016-06-12] MEDS: ATORVASTATIN 40 MG TAB PO SCH (21:39)
[2016-06-13 04:20] VITALS: BMI 29.7
[2016-06-13 05:23] LABS: MPV 8.5 fL (7.4-10.4)
[2016-06-13 05:37] LABS: BLOOD UREA NITROGEN 62 MG/DL (9-20); CALCULATED OSMOLALITY 269 MOs/Kg (270-290); CHLORIDE 95 mEq/L (98-107); GLUCOSE 137 mg/dL (70-99); SODIUM LEVEL 129 mEq/L (137-146)
[2016-06-13] MEDS: SODIUM CHLORIDE 0.9% 3 ML FLUSH FLUSH SCH (05:57)
[2016-06-13] MEDS: REGULAR INSULIN 100 UNITS/ML - 3 ML VIAL SQ SCH ×3 (05:57→17:40)
--- NOTE | 2016-06-13 06:46 | PCM.ORTHBL ---
- Subjective Post Op Day: 3 Daily Assessment - Patient: Reports: No new complaints, Awake Alert Oriented x4 , Still having pain, Tolerating Regular Diet, Voiding without difficulty, Afebrile, Ambulating with Physical Therapist. Denies: Shortness of breath, Nausea, Vomiting - Objective / Physical Exam Vital Signs: Temperature: 97.5 F (06/13/16 04:19) HR: 75 (06/13/16 05:57)RR: 18 (06/13/16 04: 19) BP: 108/62 (06/13/16 04:19)Pulse Ox: 94 (06/13/16 04:19) General: Alert, Oriented x3, Cooperative, No acute distress, Well appearing Musculoskeletal / Extremities: 2 plus Dorsalis Pedis Pulse, Dressing Clean/Dry/ Intact. negative: Tenderness (no calf tenderness) Neurological: Positive Sensation First Dorsal Web Space, Sensation to light touch intact (diminished but intact), Extensor Hallicus Longus Intact, Flexor Hallicus Longus Intact, Dorsiflexion Intact, Plantarflexion Intact (limited, no change from prior to surgery) Laboratory/Diagnostics Reviewed: 06/13/16 04:25 06/13/16 04:25 - Assessment and Plan (1) Intertrochanteric fracture of right femur Acute S72.141A - DISPLACED INTERTROCHANTERIC FRACTURE OF RIGHT FEMUR, INIT Present on Admission: Yes initial encounter closed S72.141A - Displaced intertrochanteric fracture of right femur, initial encounter for closed fracture Plan: s/p right hip IM nail PT/OT/WBAT TEDS/SCDS/ECASA 325mg BID for 30 days post-op for DVT prophylaxis Continue pain management D/C planning.
--- NOTE | 2016-06-13 07:32 | PCM.CARD ---
- Subjective Reason for visit: For heart failure and biventricular pacemaker ICD Current Assessment: No New Symptoms (He is in good spirits motivated to do his physical therapy in recover). negative: Chest Pain, Nausea, Orthopnea, Palpitations, Shortness of Breath, Vomiting Vital Signs: Last Vital Signs Temp 97.5 F 06/13/16 04:19 Pulse 75 06/13/16 05:57 Resp 18 06/13/16 04:19 BP 108/62 06/13/16 04:19 Pulse Ox 94 06/13/16 04:19 Respiratory: Diminished. negative: Rales, Rhonchi, Wheezes Jugular Vein Distention: None Pulse Rhythm: Irregular EKG Rhythm: Atrial Fibrillation (Controlled rate predominately paced) EKG Ectopy: negative: Runs >10 beats Heart Sounds: negative: S1 & S2 (Variable S1), S3, Murmur (He has no edema) Lab/DI Results Reviewed: Laboratory Tests 06/10/16 06/13/16 06/13/16 11:36 04:25 04:25 Hgb 14.0 Hct 41.2 L Sodium 129 L D Potassium 4.4 Creatinine 2.00 H Uoj-K-Llhpeuvkanw Pept 2720 H 2590 H - Assessment/Plan (1) CHF (congestive heart failure) Chronic I50.9 - HEART FAILURE, UNSPECIFIED Present on Admission: Yes systolic chronic I50.22 - Chronic systolic (congestive) heart failure Comment/Plan: Compensated, with his hyponatremia need to fluid restrict (2) Biventricular cardiac pacemaker in situ Chronic Z95.0 - PRESENCE OF CARDIAC PACEMAKER Comment/Plan: Stable recently evaluated (3) CKD (chronic kidney disease) Chronic N18.9 - CHRONIC KIDNEY DISEASE, UNSPECIFIED Present on Admission: Yes stage 3 (moderate) N18.3 - Chronic kidney disease, stage 3 (moderate) Comment/Plan: Stable (4) Atrial fibrillation Chronic I48.91 - UNSPECIFIED ATRIAL FIBRILLATION Present on Admission: Yes chronic I48.2 - Chronic atrial fibrillation Comment/Plan: Stable rate controlled continue beta-almas I would not anticoagulate him as an outpatient due to cirrhosis and previous major hemorrhagic complications he has predominately biventricular paced
[2016-06-13] MEDS ORDERED: LISINOPRIL 10 MG TAB PO SCH (09:00)
[2016-06-13] MEDS: FUROSEMIDE 80 MG TAB PO SCH ×2 (09:33→17:40)
[2016-06-13] MEDS: CARVEDILOL 3.125 MG TAB PO SCH (09:33)
[2016-06-13] MEDS: Aspirin (Orange Enteric Coated) 325 mg tab PO SCH (09:37)
[2016-06-13] MEDS: POTASSIUM CHLORIDE 20 MEQ TAB PO SCH (09:37)
[2016-06-13] MEDS: GLARGINE INSULIN (LANTUS) 100 UNITS/ML PEN SQ SCH (09:37)
[2016-06-13] MEDS: LORAZEPAM 1 MG TAB PO SCH (09:38)
[2016-06-13] MEDS: AMIODARONE 200 MG TAB PO SCH (09:38)
[2016-06-13] MEDS: OXYCODONE HCL 5 MG TABLET PO PRN (09:50)
--- NOTE | 2016-06-13 09:55 | PCM.DCS92 ---
- Final/Secondary Discharge Diagnosis (1) Intertrochanteric fracture of right femur Acute S72.141A - DISPLACED INTERTROCHANTERIC FRACTURE OF RIGHT FEMUR, INIT Present on Admission: Yes initial encounter closed S72.141A - Displaced intertrochanteric fracture of right femur, initial encounter for closed fracture Comment: Consulted Dr. Espinal of the orthopedic service for repair of the hip fracture. His hip was repaired 06/10/16 by intramedullary nailing. Patient is doing well post-operatively, c/o pain, but states "it is not too bad." tolerating PT. (2) Systolic congestive heart failure with reduced left ventricular function, NYHA class 1 Chronic I50.20 - UNSPECIFIED SYSTOLIC (CONGESTIVE) HEART FAILURE Present on Admission: Yes Comment: No tachycardia or chest pain. No significant edema. EF=25% No sign of acute decompensation. Denies shortness of breath or chest pain at this time. (3) Cardiomyopathy Chronic I42.9 - CARDIOMYOPATHY, UNSPECIFIED Present on Admission: Yes dilated I42.0 - Dilated cardiomyopathy Comment: EF =20-25% Patient with history of HCVD & DM-2, recently discharged from hospital. No anticoagulation. Using Aspirin for DVT prophylaxis. (4) Atrial fibrillation Chronic I48.91 - UNSPECIFIED ATRIAL FIBRILLATION Present on Admission: Yes chronic I48.2 - Chronic atrial fibrillation Comment: Not anticoagulated, just takes aspirin, due to prior history for bleeding complications. (5) CKD (chronic kidney disease) Chronic N18.9 - CHRONIC KIDNEY DISEASE, UNSPECIFIED Present on Admission: Yes stage 3 (moderate) N18.3 - Chronic kidney disease, stage 3 (moderate) Comment: Likely related to his uncontrolled diabetes. Renal function stable at this time. Avoid nephrotoxic agents, hold his Lasix and HARISH-inhibitor until after surgery. Then resume. Reduced dose of Lisinopril due to hypotension, added low dose beta-almas. (6) DMII (diabetes mellitus, type 2) Chronic E11.9 - TYPE 2 DIABETES MELLITUS WITHOUT COMPLICATIONS Present on Admission: Yes with kidney complications with chronic kidney disease with retirement use stage 3 (moderate) E11.22 - Type 2 diabetes mellitus with diabetic chronic kidney disease; N18.3 - Chronic kidney disease, stage 3 (moderate); Z79.4 - alf (current) use of insulin Comment: Hg A1c=8.4 during last admission, Continue Lantus, use SSI. Monitor FSBS ACHS, monitor very closely. Need to get sugars under control, for better wound healing. (7) COPD (chronic obstructive pulmonary disease) Acute J44.9 - CHRONIC OBSTRUCTIVE PULMONARY DISEASE, UNSPECIFIED (8) Charcot foot due to diabetes mellitus Chronic E11.610 - TYPE 2 DIABETES MELLITUS W DIABETIC NEUROPATHIC ARTHROPATHY Present on Admission: Yes Comment: affecting gait. Will make PT aware prior to rehab. Discharge Disposition: Assisted Facility Discharge Condition: Improved Cognitive Discharge Status: Unimpaired Fuctional Discharge Status: Walker Assistance, Fall Risk, Recent lower extremety joint replacement, Ambulatory Dysfunction Physician Follow up/Referrals: Johnathan Espinal MD [Staff Physician] - Two Weeks Home Medications / New Prescriptions: New Aspirin (OrangeEnteric Coated) [Ecotrin] 325 mg PO BID #60 tab Continue Lisinopril [Prinivil] 20 mg PO DAILY Furosemide [Lasix] 80 mg PO BID Budesonide/Formoterol Fumarate [Symbicort 80-4.5 Mcg Inhaler] 2 puff INH BID PRN PRN Reason: Shortness Of Breath Glipizide Xl [Glucotrol Xl] 10 mg PO QAM Carvedilol [Coreg] 3.125 mg PO DAILY Amiodarone HCl [Pacerone] 100 mg PO BID Trazodone HCl [Desyrel] 100 mg PO QHS #60 tablet Albuterol Sulfate MDI [Proventil HFA] 2 puff INH Q4 PRN #1 inhaler PRN Reason: Dyspnea POTASSIUM CHLORIDE Tablet [K-DUR 20 mEq Tablet*] 20 meq PO BIDWM #60 tab.er.prt Insulin Glargine [Lantus Pen] 60 units SQ QAM Budesonide [Pulmicort] 0.5 mg NEB DAILY PRN PRN Reason: Shortness Of Breath Atorvastatin Calcium [Lipitor] 40 mg PO QHS Lorazepam [Ativan] 1 mg PO BID #60 tab Oxycodone Immediate Release [Oxycodone Immediate Release (OxyIR)] 5 mg PO Q4H PRN #40 tab PRN Reason: Pain Discontinued Aspirin [Johnathon Aspirin] 325 mg PO DAILY Discharge Home Medication List Furosemide [Lasix] 80 mg PO BID 03/19/13 [History Confirmed 06/10/16] Lisinopril [Prinivil] 20 mg PO DAILY 03/19/13 [History Confirmed 06/10/16] Budesonide/Formoterol Fumarate [Symbicort 80-4.5 Mcg Inhaler] 2 puff INH BID PRN 04/30/15 [History Confirmed 06/10/16] Carvedilol [Coreg] 3.125 mg PO DAILY 08/16/15 [History Confirmed 06/10/16] Glipizide Xl [Glucotrol Xl] 10 mg PO QAM 08/16/15 [History Confirmed 06/10/16] Amiodarone HCl [Pacerone] 100 mg PO BID 11/06/15 [History Confirmed 06/10/16] Trazodone HCl [Desyrel] 100 mg PO QHS #60 tablet 04/16/16 [Rx Confirmed 06/10/16 ] Albuterol Sulfate MDI [Proventil HFA] 2 puff INH Q4 PRN #1 inhaler 05/28/16 [Rx Confirmed 06/10/16] POTASSIUM CHLORIDE Tablet [K-DUR 20 mEq Tablet*] 20 meq PO BIDWM #60 tab.er.prt 06/04/16 [Rx Confirmed 06/10/16] Atorvastatin Calcium [Lipitor] 40 mg PO QHS 06/10/16 [History Confirmed 06/10/16 ] Budesonide [Pulmicort] 0.5 mg NEB DAILY PRN 06/10/16 [History Confirmed 06/10/16 ] Insulin Glargine [Lantus Pen] 60 units SQ QAM 06/10/16 [History Confirmed ] Aspirin (OrangeEnteric Coated) [Ecotrin] 325 mg PO BID #60 tab 06/12/16 [Rx] Lorazepam [Ativan] 1 mg PO BID #60 tab 06/13/16 [Rx] Oxycodone Immediate Release [Oxycodone Immediate Release (OxyIR)] 5 mg PO Q4H PRN #40 tab 06/13/16 [Rx] New Discharge Medications (Rx) Aspirin (OrangeEnteric Coated) [Ecotrin] 325 mg PO BID #60 tab 06/12/16 [Rx] Lorazepam [Ativan] 1 mg PO BID #60 tab 06/13/16 [Rx] Oxycodone Immediate Release [Oxycodone Immediate Release (OxyIR)] 5 mg PO Q4H PRN #40 tab 06/13/16 [Rx] O2 Device: Room Air Diet at Discharge: As Tolerated, Regular Activity: As Tolerated Call Office For: Worsening Symptoms, Wound is Painful, Pain Uncontrolled By Meds - DC Summary Notes Hospital Course Note:: Discharge summary on patient named SANCHEZ OVALLE admitted to [facility] on 06/10/16 by Christa Christian MD. Date of discharge is []. Pleasant 65-year-old gentleman with a cardiomyopathy with an ejection fraction of 20-25% presented with a right hip fracture. He was seen by Cardiology and felt stable to proceed to surgery. He underwent gamma nail and intramedullary nail procedures and tolerated that well. Today is postoperative day 3. He has been getting up to the bedside chair with assistance from physical therapy. He has reached maximum benefit of hospitalization. He is stable for discharge to longterm facility. Total Time: 55 min - Physical Exam Vital Signs: Last Vital Signs Temp 97.8 F 06/13/16 07:43 Pulse 72 06/13/16 07:43 Resp 20 06/13/16 07:43 BP 94/70 L 06/13/16 07:43 Pulse Ox 94 06/13/16 07:43 Oxygen Pulse Oxygen Saturation 94 O2 Device Room Air Oxygen Flow Rate 3 Fraction of Inspired Oxygen ( FIO2) Constitutional: No apparent distress, Alert Oriented to: Time, Person, Place - HEENT Head: Normal - Respiratory/Cardiovascular Respiratory: Diminished. negative: Rales, Rhonchi, Wheezes - GI Auscultation: Normal Palpation: Normal (soft, nondistended). negative: Enlarged liver, Enlarged spleen, Fluid Wave, Mass Tenderness: Non tender. negative: Guarding, Rebound, Rigidity Novak's Sign: Negative Rectal Exam: Normal, Heme negative stool, Rectal Tone (normla) - Musculoskeletal Extremities: Pedal Pulse, Other (RLE is shortened and externally rotated. Minimal tenderness to palpation about the hip. Plantarflexion and dorsiflexion intact although limited (from Charcot foot). Able to move toes freely. Sensation is intact but severely diminished in RLE. This is without change per patient.). negative: Calf Tenderness - Integumentary Lymphatics: Normal - Neurologic Memory Impaired: Normal Cerebellar: Normal Mood Description: Anxious Thought: Coherent Perception: Normal - Other Exam Other Exam Findings: Laboratory Results - last 24 hr 06/12/16 06/12/16 06/12/16 10:54 15:50 19:33 WBC RBC Hgb Hct MCV MCH MCHC RDW Plt Count MPV Sodium Potassium Chloride Carbon Dioxide Anion Gap BUN Creatinine Estimated GFR (MDRD) Glucose POC Capillary Glucose 200 H 200 H 258 H Calculated Osmolality Calcium Magnesium Gdn-L-Pifaipjghbq Pept 06/13/16 06/13/16 06/13/16 04:25 04:25 05:10 WBC 11.4 H RBC 4.42 L Hgb 14.0 Hct 41.2 L MCV 93 MCH 31.8 MCHC 34.1 RDW 15.2 H Plt Count 132 MPV 8.5 Sodium 129 L D Potassium 4.4 Chloride 95 L Carbon Dioxide 26 Anion Gap 12 BUN 62 H Creatinine 2.00 H Estimated GFR (MDRD) 33 L Glucose 137 H POC Capillary Glucose 144 H Calculated Osmolality 269 L Calcium 9.0 Magnesium 2.20 Fyl-W-Htipytrynqb Pept 2590 H BILATERAL HIP (WITH PELVIS) 3-4 VIEWS COMPARISON: None. FINDINGS: There is a fracture in the proximal right femur at the base of the femoral neck with impaction and angulation at the fracture site. It appears to extend into the intertrochanteric region as well. The pelvic ring is intact. No other focal abnormality is seen. IMPRESSION: Proximal right femoral fracture Electronically Signed By: Pedro Diana M.D. On: 06/10/2016 09:14 CT OF THE LOWER RIGHT EXTREMITY WITHOUT CONTRAST TECHNIQUE: Multidetector CT imaging of the right was performed according to the standard protocol. COMPARISON: None. FINDINGS: Fracture involving the base of the femoral neck with comminution of the right greater trochanter. Small fracture cleft extending to the superior most aspect of the lesser trochanter, but a majority of the fracture is involving the base of the femoral neck. No right hip dislocation. No aggressive lytic or sclerotic osseous lesion. Intact superior and inferior right pubic rami. No focal fluid collection or hematoma. Normal musculature. Peripheral vascular atherosclerotic disease. IMPRESSION: Fracture involving the base of the femoral neck with comminution of the right greater trochanter. Small fracture cleft extending to the superior most aspect of the lesser trochanter, but a majority of the fracture is involving the base of the femoral neck. Electronically Signed By: Luma Ayala On: 06/10/2016 10:17
[2016-06-13 11:31] VITALS: BP 106/66; PULSE 73; TEMP 98
[2016-06-13] MEDS: CALCIUM CARBONATE + VITAMIN D 500 MG TAB PO SCH (12:17)
--- NOTE | 2016-06-13 20:27 | PCM.DCS92 ---
- Final/Secondary Discharge Diagnosis (1) Intertrochanteric fracture of right femur Acute S72.141A - DISPLACED INTERTROCHANTERIC FRACTURE OF RIGHT FEMUR, INIT Present on Admission: Yes initial encounter closed S72.141A - Displaced intertrochanteric fracture of right femur, initial encounter for closed fracture Discharge Disposition: [facility] Facility Discharge Condition: Improved Cognitive Discharge Status: Unimpaired Fuctional Discharge Status: Walker Assistance, Fall Risk, Post-op Weakness Physician Follow up/Referrals: Johnathan Espinal MD [Staff Physician] - Two Weeks Home Medications/ New Prescriptions: New Aspirin (OrangeEnteric Coated) [Ecotrin] 325 mg PO BID #60 tab Continue Lisinopril [Prinivil] 20 mg PO DAILY Furosemide [Lasix] 80 mg PO BID Budesonide/Formoterol Fumarate [Symbicort 80-4.5 Mcg Inhaler] 2 puff INH BID PRN PRN Reason: Shortness Of Breath Glipizide Xl [Glucotrol Xl] 10 mg PO QAM Carvedilol [Coreg] 3.125 mg PO DAILY Amiodarone HCl [Pacerone] 100 mg PO BID Trazodone HCl [Desyrel] 100 mg PO QHS #60 tablet Albuterol Sulfate MDI [Proventil HFA] 2 puff INH Q4 PRN #1 inhaler PRN Reason: Dyspnea POTASSIUM CHLORIDE Tablet [K-DUR 20 mEq Tablet*] 20 meq PO BIDWM #60 tab.er.prt Insulin Glargine [Lantus Pen] 60 units SQ QAM Budesonide [Pulmicort] 0.5 mg NEB DAILY PRN PRN Reason: Shortness Of Breath Atorvastatin Calcium [Lipitor] 40 mg PO QHS Lorazepam [Ativan] 1 mg PO BID #60 tab Oxycodone Immediate Release [Oxycodone Immediate Release (OxyIR)] 5 mg PO Q4H PRN #40 tab PRN Reason: Pain Discontinued Aspirin [Johnathon Aspirin] 325 mg PO DAILY Diet at Discharge: As Tolerated, Regular Activity: As Tolerated Call Office For: Worsening Symptoms, Wound is Draining Pus, Fever over 101 F, Fever over 100.5, Wound is Painful, Wound is Red, Weight Gain (see below), Pain Uncontrolled By Meds, Other (See Details) Discontinue use of:: Alcohol, All Illegal Substances, All Types of Tobacco - DC Summary Notes Hospital Course Note:: Discharge summary on patient named SANCHEZ OVALLE admitted to [facility] on 06/10/16 by Christa Christian MD. Date of discharge is [06/13/16]. Afebrile. Hospital course and surgery uneventful. Progressing with PT, limited by pain. Continue pain management. WBAT. ECASA 325mg BID for 30 days post-op for DVT prophylaxis. Daily dry dressing changes as needed. Stable for discharge to SNF. To follow-up in office in 2 weeks or earlier as needed. - Transfer to Other Facility Facility Dept.: [id number] Transfer Form Completed: Yes Wound Care Surgical Site: Yes Site Description (if applicable): right hip Dressing/Site Care (if applicable): dry dressing changes as needed. Medical Equipment (Order must still be written on paper): Walker Remove Transdermal Scopalamine patch if present: YES Medication Instructions: Take Stool Softener Continue Ice Packs/Ice Machine to Operative Area: Yes Activity as Tolerated: Yes Weight Bearing: Full Current Dressing: Tegaderm Dressing Care: Keep Wound Clean & Dry, Shower with Tegaderm Dsg, No Tub Baths, Change Dressing Daily (as needed.) - Physical Exam Vital Signs: Initial Vitals Temperature 98.2 F 06/10/16 08:05 Pulse Rate 77 06/10/16 08:05 Respiratory Rate 20 06/10/16 08:05 Blood Pressure 128/100 06/10/16 08:05 Pulse Oxygen Saturation 95 06/10/16 08:05 Constitutional: No apparent distress, Alert, Well appearing Oriented to: Time, Person, Place - Musculoskeletal Extremities: Pedal Pulse. negative: Calf Tenderness - Neurologic Memory Impaired: Normal Motor Function: Normal Cerebellar: Normal Mood Description: Normal Thought: Coherent Perception: Normal
== END 2016-06-13 17:51 | DRG 481 ==
LOC: ED 08:01 → PCU 09:35
PROVIDERS: ADMIT Family Medicine; ATTEND Hospitalist
PROC: 0QH636Z Insertion of Intramedullary Internal Fixation Device into Right Upper Femur, Percutaneous Approach (ICD-10-PCS; principal; 2016-06-10 14:15)
DX: S72.141A Displaced intertrochanteric fracture of right femur, initial encounter for closed fracture (principal); I50.20 Unspecified systolic (congestive) heart failure; I42.0 Dilated cardiomyopathy; I13.0 Hypertensive heart and chronic kidney disease with heart failure and stage 1 through stage 4 chronic kidney disease, or unspecified chronic kidney disease; W17.89XA Other fall from one level to another, initial encounter; Y92.008 Other place in unspecified non-institutional (private) residence as the place of occurrence of the external cause; I48.2 Chronic atrial fibrillation; N18.3 Chronic kidney disease, stage 3 (moderate); E11.610 Type 2 diabetes mellitus with diabetic neuropathic arthropathy; E11.22 Type 2 diabetes mellitus with diabetic chronic kidney disease; J43.9 Emphysema, unspecified; Z79.4 Long term (current) use of insulin; I25.2 Old myocardial infarction; Z95.810 Presence of automatic (implantable) cardiac defibrillator; Z87.442 Personal history of urinary calculi; M10.9 Gout, unspecified; M19.90 Unspecified osteoarthritis, unspecified site; F41.9 Anxiety disorder, unspecified; Z88.8 Allergy status to other drugs, medicaments and biological substances; Z79.82 Long term (current) use of aspirin; Z79.84 Long term (current) use of oral hypoglycemic drugs; Z79.51 Long term (current) use of inhaled steroids; Z72.0 Tobacco use; I25.10 Atherosclerotic heart disease of native coronary artery without angina pectoris; B18.2 Chronic viral hepatitis C; K74.60 Unspecified cirrhosis of liver; E78.00 Pure hypercholesterolemia, unspecified
CPT/HCPCS: 36415; 51701; 71010; 73521; 80048; 80053; 81001; 82306; 82550; 82962; 83735; 83880; 84484; 85025; 85027; 85610; 85730; 86850; 86900; 86901; 87641; 93005; 94640; 96372; 96374; 96375; 97162; 97165; 99284; G0237; J0690; J1170; J1940; J2250; J2405; J3010; J3490